=== PATIENT | female | born 1945 | race Caucasian/White ===

== ENCOUNTER → 2018-03-10 13:09 | Outpatient (CLI) | payer MEDICARE, MEDICAID, SELFPAY ==
--- NOTE | 2018-03-10 13:24 | XR_ITS ---
XR chest 2V HISTORY: ITS.REASON: CHEST PAIN ORDERING PHYSICIAN: Harper Sands PATIENT AGE: 73 years COMPARISON: 06/14/2009 FINDINGS: The cardiomediastinal silhouette and pulmonary vascularity are within normal limits. The lungs are clear without infiltrates, suspicious nodules, or pleural effusions. No acute bony abnormalities. IMPRESSION: Negative chest, no acute finding
--- NOTE | 2018-03-10 13:24 | XR_ITS ---
XR shoulder LT min 2V HISTORY: ITS.REASON: SHOULDER PAIN ORDERING PHYSICIAN: Harper Sands PATIENT AGE: 73 years Comparison: None FINDINGS: No fracture or dislocation. No lytic or blastic change. There is normal mineralization. There are mild osteoarthritic changes of the acromioclavicular joint with some mild hypertrophy along the undersurface of the acromion. No significant subacromial stenosis. The glenohumeral joint has an unremarkable appearance. There is some minimal subcortical cystic change of the greater tuberosity. This may be seen with rotator cuff disease. IMPRESSION: 1. Mild acromioclavicular arthropathy. 2. Mild subcortical cystic change of the greater tuberosity which may be seen with rotator cuff disease
== END ==
PROVIDERS: PCP Family Medicine; Visit Provider Nurse Practitioner Family
DX: R07.9 Chest pain, unspecified (principal); M25.512 Pain in left shoulder
CPT/HCPCS: 71046; 73030; 93005

== ENCOUNTER 2018-04-07 10:30 | Outpatient (RCR) | payer MEDICARE, MEDICAID, SELFPAY ==
--- NOTE | 2018-04-05 14:42 | HMH.PTOPEV ---
PT Outpatient Evaluation Rehab PT Outpatient Evaluation Start: 04/05/18 14:25 Freq: Status: Active Protocol: Document 04/05/18 14:25 CAROLINEDEEPTHI (Rec: 04/05/18 14:41 ADELITA [id number]) Electronically Signed By Kolton Lieberman, PT 04/05/18 14:25 Outpatient Therapy Subjective History Subjective History Patient is a 73 year old female presenting to outpatient PT with reports of chronic L shoulder pain of insidous onset starting approx 1 year ago. Most recent diagnostics indicate L ACJ arthropathy and signs of L rotator cuff disease per report. Main complaint is pain with reaching behind back . Comorbidities include Chief Complaint Pain Stiff Gives out/Unstable Symptom Type Ache Sharp Symptoms Relieved By Heat OTC Meds Symptoms Aggravated By Physical Activity Lifting Prior Functional Limitations None Current Functional Limitations Reaching Lifting Housework Dressing Sleeping Symptom Description Intermittent Level of pain today (0-10) 0 Pain scale - at its best (0-10) 0 Pain scale - at its worst (0-10) 5 Shoulder/Elbow Eval Shoulder Objective Measurements Palpation Tenderness tenderness shoulder exam standard left tenderness over the bicipital tendon left shoulder exam standard tenderness over the SA bursa shoulder left exam standard Shoulder Palpation Findings Tenderness Shoulder Palpation Overall Comment posterior cuff Posture Shoulder Posture Sitting Position (L) Forward (R) Forward Shoulder Posture Standing Position (L) Forward (R) Forward Flexibilty Deficits Pectoralis Minor Muscle Length (R) Moderate Tightness (L) Moderate Tightness Upper Trapezius Muscle Length (R) Moderate Tightness (L) Moderate Tightness Shoulder ROM Bilateral Shoulder Abduction Active Range of 138 Motion (degrees) Shoulder Flexion Active Range of Motion 144 (degrees) Query Text: Shoulder External Rotation Active Range WNL of Motion (degrees) Shoulder Internal Rotation
== END 2018-04-07 10:35 | disposition home or self-care (01) ==
LOC: PT 10:30
PROVIDERS: Visit Provider Family Medicine
DX: M25.512 Pain in left shoulder (principal)
CPT/HCPCS: 97010; 97014; 97033; 97035; 97110; 97163; G0283

== ENCOUNTER → 2018-05-31 13:40 | Outpatient (POV) | payer MEDICARE, MEDICAID, SELFPAY | PROVIDERS: Visit Provider Dermatology | DX: Z00.00 Encounter for general adult medical examination without abnormal findings (principal) ==

== ENCOUNTER → 2019-05-22 09:41 | Outpatient (CLI) | payer MEDICARE, MEDICAID, SELFPAY ==
--- NOTE | 2019-05-22 09:44 | MM_ITS ---
PROCEDURE: MM DIG SCREENING MAMM BI W/CAD BILATERAL DIGITAL BREAST TOMOSYNTHESIS Patient Age:74Y CLINICAL INDICATION: SCREENINGNo hormones. No new complaints. History of melanoma arm 3 years ago Family history noncontributory COMPARISON: BC SCREENING MAMMOGRAM DIGITAL from 06/01/2008 BC SCREENING MAMMOGRAM DIGITAL from 07/04/2009 BC SCREENING MAMMOGRAM DIGITAL from 07/18/2010 DMSB DIG MAMM-SCREEN JOANN from 03/02/2014 DMDXUAVR DIG MAMM-DX UNI ADD VIEWS-RT from 05/02/2014 DMDXUWAR DIG MAMM-DX UNI RT W ADD VIEW from 12/28/2014 TECHNIQUE: Standard CC and MLO images were obtained. R2 CAD reviewed. MM DIG SCREENING MAMM BI W/CAD BILATERAL DIGITAL BREAST TOMOSYNTHESIS FINDINGS: Moderate residual fibroglandular elements most evident at the retroareolar region anterior breast bilaterally. No new dominant or suspicious mass, no suspicious calcifications.. Overall architecture stable when compared to multiple previous studies Right breast No new areas of significant concern Overlapping shadows account area of minor focal density retroareolar region on MLO view. This dissipates on the tomosynthesis and on CC views appear stable. Similar appearance also noted on studies dating back to 2014. No new findings of concern Left breast: No new areas of concern follow-up in 1 year IMPRESSION: Stable bilateral mammogram No significant change . Bilateral follow-up 1 year recommended BI-RAD Category: 2 Benign Finding(s) FOLLOW-UP: 1YR 1 Year Follow-up (A letter has been sent to the patient regarding results of the study.) Dictated by: Rohit Chowdhury MD 05/29/2019 11:22 Electronically signed by Rohit Chowdhury MD in [place] 05/29/2019 11:23
== END ==
PROVIDERS: PCP Family Medicine; Visit Provider Family Medicine
DX: Z12.31 Encounter for screening mammogram for malignant neoplasm of breast (principal)
CPT/HCPCS: 77063; 77067

== ENCOUNTER 2020-03-12 13:25 | Emergency (ER) | payer MEDICARE, MEDICAID, SELFPAY ==
[2020-03-12 13:50] VITALS: BP 150/61; PULSE 75; RESP 14; TEMP 36.8; O2SAT 97; BMI 25.7
--- NOTE | 2020-03-12 14:14 | HMH.EDUTC ---
[facility] [place] Disposition Clinical Impression: Sinusitis Qualifiers: Sinusitis location: unspecified location Chronicity: acute Recurrence: non-recurrent Qualified Code(s): J01.90 - Acute sinusitis, unspecified Disposition: Home, Self-Care Condition on Discharge: Good Instructions: Sinusitis, DI for Sinusitis, COVID-19: Testing and Tracing, Preventing the Spread of Coronavirus Discharge Instructions Additional Instructions: Drink plenty of fluids. Take tylenol or ibuprofen for pain or fever. Take the medications as directed. Follow up with your regular doctor. GO TO THE ER FOR ANY WORSENING SYMPTOMS Prescriptions: predniSONE [Deltasone 10mg tablet] 10 mg PO BID 5 Days #10 tab Transmission Status: Received by [facility] [employer] # Azithromycin [Z-Chan 250mg Tab*] 250 mg PO UD DOSE PK #6 tab Transmission Status: Received by [employer] # Referrals: Denis Chahal MD [Primary Care Provider] - Time of Disposition: 14:16 Medical Decision Making - Medical Records Medical records reviewed: No: I reviewed the patient's medical records. - Armando Inquiry Pt receiving controlled substance: No Vital Signs: 03/12/20 13:50 03/12/20 14:20 Temperature 98.2 F 98.2 F Temperature Source Oral Pulse Rate 75 Pulse Rate [Right Brachial] 75 Respiratory Rate 14 14 Blood Pressure 150/61 H Blood Pressure [Right Arm] 150/61 H Blood Pressure Mean [Right Arm] 90 Blood Pressure Source [Right Arm] Automatic Cuff Blood Pressure Position [Right Arm] Sitting 02 Sat by Pulse Oximetry 97 Oxygen Delivery Method Room Air Orders (Tests/Meds): ORDERS Category Date Time Status Covid-19 Nasal PCR Sendout P&C Routine Lab 03/12/20 13:50 Received [facility] [place] HPI - General Stated complaint: COVID TEST Time Seen by Provider: 03/12/20 14:14 Mode of Arrival: Ambulatory Source of Information: Patient Limitations: No Limitations Description of Symptoms (Recalled from Triage Doc. by RN): PATIENT REQUESTING COVID TEST. DENIES EXPOSURE. C/O SINUS CONGESTION HEENT Symptoms (Recalled from RN notes): No Resp Symptoms (Recalled from RN notes): No Skin Symptoms (Recalled from RN notes): No MS Symptoms (Recalled from RN notes): No Functional Status (Recalled from RN notes): WNL - History of Present Illness Provider Complaint: She states that for the past 1 week or so she has had sinus congestion and sinus drainage. She denies any known exposure to covid. - Related Data Home Medications Medication Instructions Recorded Confirmed Atorvastatin Calcium [Atorvastatin 10 mg PO HS 11/18/18 12/27/18 10mg Tab] Losartan/Hydrochlorothiazide 50 mg PO DAILY 11/18/18 12/27/18 [Losartan-Hctz 50-12.5 mg Tab] Sertraline HCl [Zoloft 100mg 100 mg PO BID 11/18/18 12/27/18 tablet] Aspirin [Aspirin 81mg chewable 81 mg PO DAILY 12/21/18 12/27/18 tab] Previous Rx's Medication Instructions Recorded Azithromycin [Z-Chan 250mg Tab*] 250 mg PO UD DOSE PK #6 tab 03/12/20 predniSONE [Deltasone 10mg tablet] 10 mg PO BID 5 Days #10 tab 03/12/20 Allergies Allergy/AdvReac Type Severity Reaction Status Date / Time No Known Drug Allergies Allergy Unknown Verified 02/28/19 16:38 - Worker's Comp Is this a Worker's Comp case?: No [facility] History - Hepatitis A Screen Drug use history?: No High risk sexual behaviors?: No History of sexually transmitted infection?: No Currently employed?: No Childcare worker?: No Do you have indoor plumbing?: Yes Do you have electricity?: Yes Attestation statement:: This patient has been screened for Hepatitis A risk factors. I have reviewed the patient's past medical history: Yes Medical History: Reports:: Cancer (left arm melanoma), Hyperlipidemia, Hypertension Denies:: Diabetes Mellitus Type 1, Diabetes Mellitus Type 2, Internal Pacemaker, MRSA, Seizures Other Surgeries: No: Pacemaker Amputation: No Fractures: Yes (rt ankle) - Social History Smoking Status: F
[2020-03-12 14:20] VITALS: BP 150/61; PULSE 75; RESP 14; TEMP 36.8; O2SAT 97
[2020-03-13 10:59] LABS: Covid-19 Nasal PCR Sendout P&C Negative
== END 2020-03-12 14:21 | disposition home or self-care (01) ==
PROVIDERS: Emergency Provider Nurse Practitioner Family; PCP Family Medicine
DX: Z20.822 Contact with and (suspected) exposure to COVID-19 (principal); J01.90 Acute sinusitis, unspecified; I10 Essential (primary) hypertension; E78.5 Hyperlipidemia, unspecified; Z87.891 Personal history of nicotine dependence; Z79.899 Other long term (current) drug therapy
CPT/HCPCS: G0463; 99202; U0004

== ENCOUNTER → 2020-06-14 09:17 | Outpatient (CLI) | payer MEDICARE, MEDICAID, SELFPAY ==
--- NOTE | 2020-06-14 09:22 | MM_ITS ---
PROCEDURE INFORMATION: Exam: MG Screening 3D Mammography Exam date and time: 06/14/2020 9:22 AM Age: 75 years old Clinical indication: Encounter for screening mammogram for malignant neoplasm of breast TECHNIQUE: Imaging protocol: Screening tomosynthesis and 2D mammography including computer-aided detection (CAD) when performed. COMPARISON: 1. MG MM DIG SCREENING MAMM BI W/CAD 05/22/2019 9:58 AM 2. MG DMDXUWAR DIG MAMM-DX UNI RT W ADD VIEW 12/28/2014 1:48 PM FINDINGS: MAMMOGRAPHY: Breast composition: The breast tissue is composed of scattered areas of fibroglandular density. Mass: None. Architectural distortion: None. Calcifications: No suspicious calcifications. Asymmetric density: None. Skin thickening: None. Axillary adenopathy: None. IMPRESSION: No mammographic evidence of malignancy. Annual screening is recommended unless otherwise clinically indicated. ASSESSMENT: BI-RADS Category 1: Negative
== END ==
PROVIDERS: PCP Family Medicine; Visit Provider Family Medicine
DX: Z12.31 Encounter for screening mammogram for malignant neoplasm of breast (principal)
CPT/HCPCS: 77063; 77067

== ENCOUNTER → 2020-11-11 10:51 | Outpatient (CLI) | payer MEDICARE, MEDICAID, SELFPAY | PROVIDERS: PCP Family Medicine; Visit Provider Nurse Practitioner | DX: Z20.822 Contact with and (suspected) exposure to COVID-19 (principal); U07.1 COVID-19 | CPT/HCPCS: C9803; U0003; U0005 ==

== ENCOUNTER → 2021-02-27 11:15 | Outpatient (CLI) | payer MEDICARE, MEDICAID, SELFPAY ==
[2021-02-27 11:36] LABS: Basophils # 0.2 K/mm3 (0-0.2); Basophils % 2.1 % (0.1-2.0); Eosinophils % 0.3 % (0.1-12.0); Hematocrit 41.7 % (37.0-47.0); Hemoglobin 13.9 g/dL (12.2-16.2); Lymphocytes # 1.9 K/mm3 (0.7-4.5); Lymphocytes % 24.9 % (10-50); Mean Corpuscular HGB Conc 33.3 g/dL (31.8-35.4); Mean Corpuscular Hemoglobin 29.3 pg (27.0-31.2); Mean Platelet Volume 8.1 fl (7.4-10.4); Monocytes # 0.5 K/mm3 (0.1-1.0); Monocytes % 6.6 % (1.7-9.3); Neutrophils # 4.9 K/mm3 (1.8-7.8); Neutrophils % 66.2 % (37.0-80.0); Platelet Count 476 K/mm3 (142-424); Red Blood Count 4.74 M/mm3 (4.20-5.40); Red Cell Distribution Width 13.6 % (11.5-17.5); White Blood Count 7.5 K/mm3 (4.8-10.8)
[2021-02-27 12:42] LABS: Alanine Aminotransferase 26 U/L (12-78); Albumin Level 4.5 g/dl (3.5-5.0); Albumin/Globulin Ratio 1.7 (1.1-1.8); Alkaline Phosphatase 127 U/L (38-126); Anion Gap 12.4 mEq/L (5-15); Aspartate Amino Transferase 33 U/L (14-36); Bilirubin,Total 0.7 mg/dl (0.2-1.3); Blood Urea Nitrogen 15 mg/dl (7-17); Calcium 9.5 mg/dl (8.4-10.2); Carbon Dioxide 29 mmol/L (22.0-30.0); Chloride 97 mmol/L (98-107); Estimated Glomerular Filt Rate 61 ml/min (>60); GFR (African American) 74 ML/MIN (>60); Globulin 2.7 g/dL (1.3-3.2); Glucose 94 mg/dl (74-100); Potassium 4.4 mmoL/L (3.5-5.1); Sodium 134 mmol/L (136-145); Total Protein,Serum 7.2 g/dl (6.3-8.2)
== END ==
PROVIDERS: Visit Provider Nurse Practitioner Family
DX: R10.31 Right lower quadrant pain (principal); R19.7 Diarrhea, unspecified
CPT/HCPCS: 36415; 80053; 85025

== ENCOUNTER → 2021-02-28 09:17 | Outpatient (CLI) | payer MEDICARE, MEDICAID, SELFPAY ==
[2021-02-28 09:19] LABS: Adenovirus F 40/41, stool Not Detected (NotDetected); Astrovirus Not Detected (NotDetected); Campylobacter Not Detected (NotDetected); Clostridium Difficile A/B, PCR Not Detected (NotDetected); Cryptosporidium Not Detected (NotDetected); Cyclospora Cayetanesis Not Detected (NotDetected); Entamoeba histolytica Not Detected (NotDetected); Enteroaggregative E coli Not Detected (NotDetected); Enteropathogenic E coli Not Detected (NotDetected); Enterotoxigenic E coli Not Detected (NotDetected); Giardia lamblia Not Detected (NotDetected); Norovirus Not Detected (NotDetected); Plesimonas Shigalloides, PCR Not Detected (NotDetected); Rotavirus A Not Detected (NotDetected); Salmonella, PCR Not Detected (NotDetected); Sapovirus Not Detected (NotDetected); Shiga-like toxin E coli Not Detected (NotDetected); Shigella Enterovasive E coli Not Detected (NotDetected); Vibrio Cholerae Not Detected (NotDetected); Vibrio, PCR Not Detected (NotDetected); Yersinia Entercolitica, PCR Not Detected (NotDetected)
== END ==
PROVIDERS: PCP Family Medicine; Visit Provider Nurse Practitioner Family
DX: R19.7 Diarrhea, unspecified (principal)
CPT/HCPCS: 87506

== ENCOUNTER 2021-02-28 17:38 | Emergency (ER) | payer MEDICARE, MEDICAID, SELFPAY ==
[2021-02-28 19:06] LABS: Apearance,Urine Cloudy (Clear); Bilirubin,Urine Negative (Negative); Blood, Urine 3+ (Negative); Color,Urine Yellow (Yellow); Glucose,Urine (UA) Negative (Negative); Ketones,Urine Negative (Negative); PH,Urine 5.5 (5.0-8.5); Protein,Urine 1+ (Negative); Specific Gravity, Urine 1.015 (1.005-1.030); UTC Leukocyte Esterase,Urine 2+ (Negative); UTC Nitrate,Urine Negative (Negative); Urobilinogen,Urine 0.2 EU/dl (0.2)
[2021-02-28 19:18] VITALS: BP 176/56; PULSE 65; RESP 16; TEMP 36.9; O2SAT 98; BMI 25.7
--- NOTE | 2021-02-28 19:39 | HMH.EDUTC ---
[facility] [place] Impression: UTI (urinary tract infection) Qualifiers: Urinary tract infection type: site unspecified Hematuria presence: with hematuria Qualified Code(s): N39.0 - Urinary tract infection, site not specified; R31.9 - Hematuria, unspecified Disposition: Home, Self-Care Condition on Discharge: Good Instructions: Urinary Tract Infection, DI for Urinary Tract Infection (UTI), Phenazopyridine Additional Instructions: Drink plenty of fluids. Take tylenol for pain or fever. Take the medications as directed. Follow up with your regular doctor. GO TO THE ER FOR ANY WORSENING SYMPTOMS The pyridium will make your urine turn orange, this is an expected side effect. It will stain your clothes if it comes into contact with them. Prescriptions: Ondansetron [Zofran 4mg ODT] 4 mg PO Q8HP PRN #20 tab PRN Reason: Nausea Transmission Status: Pending to [facility] Ciprofloxacin HCl [Cipro 500mg Tab] 500 mg PO BID 5 Days #10 tab Transmission Status: Pending to [facility] Phenazopyridine HCl [Pyridium 200mg Tablet] 200 pow PO TID #6 tab Transmission Status: Pending to [facility] Referrals: Nato Mueller MD [Primary Care Provider] - Time of Disposition: 20:10 Medical Decision Making - Medical Records Medical records reviewed: No: I reviewed the patient's medical records. - Armando Inquiry Pt receiving controlled substance: No Vital Signs: 02/28/21 19:18 Temperature 98.4 F Temperature Source Oral Pulse Rate [Left] 65 Respiratory Rate 16 Blood Pressure [Right Arm] 176/56 H Blood Pressure Mean [Right Arm] 96 02 Sat by Pulse Oximetry 98 - Lab Data Lab Results 02/28/21 19:04: Urine Color Yellow, Urine Appearance Cloudy, Urine pH 5.5, Ur Specific Mcgill 1.015, Urine Protein 1+, Urine Glucose (UA) Negative, Urine Ketones Negative, Urine Blood 3+, Urine Nitrate Negative, Urine Bilirubin Negative, Urine Urobilinogen 0.2, Ur Leukocyte Esterase 2+ A Orders (Tests/Meds): ORDERS Category Date Time Status Urine Culture Stat Micro 02/28/21 18:59 [place] [facility] [place] - General Stated complaint: blood in urine Time Seen by Provider: 02/28/21 19:39 Mode of Arrival: Ambulatory Source of Information: Patient Limitations: No Limitations Description of Symptoms (Recalled from Triage Doc. by RN): pt c/o urinary pressure since yesterday. HEENT Symptoms (Recalled from RN notes): No Resp Symptoms (Recalled from RN notes): No Skin Symptoms (Recalled from RN notes): No MS Symptoms (Recalled from RN notes): No Functional Status (Recalled from RN notes): wnl - History of Present Illness Provider Complaint: She states that she has been having burning with urination and low back pain for the past 2 days. She has also had some mild low back pain. She denies any fever but she has had chills. - Related Data Home Medications Medication Instructions Recorded Confirmed Atorvastatin Calcium [Atorvastatin 10 mg PO HS 11/18/18 12/27/18 10mg Tab] Losartan/Hydrochlorothiazide 50 mg PO DAILY 11/18/18 12/27/18 [Losartan-Hctz 50-12.5 mg Tab] Sertraline HCl [Zoloft 100mg 100 mg PO BID 11/18/18 12/27/18 tablet] Aspirin [Aspirin 81mg chewable 81 mg PO DAILY 12/21/18 12/27/18 tab] Previous Rx's Medication Instructions Recorded Azithromycin [Z-Chan 250mg Tab*] 250 mg PO UD DOSE PK #6 tab 03/12/20 predniSONE [Deltasone 10mg tablet] 10 mg PO BID 5 Days #10 tab 03/12/20 Ciprofloxacin HCl [Cipro 500mg 500 mg PO BID 5 Days #10 tab 02/28/21 Tab] Ondansetron [Zofran 4mg ODT] 4 mg PO Q8HP PRN #20 tab 02/28/21 Phenazopyridine HCl [Pyridium 200 pow PO TID #6 tab 02/28/21 200mg Tablet] Allergies Allergy/AdvReac Type Severity Reaction Status Date / Time No Known Drug Allergies Allergy Unknown Verified 02/28/19 16:38 - Worker's Comp Is this a Worker's Comp case?: No [facility] History - Hepatitis A Screen Drug use history?:
[2021-02-28 20:31] VITALS: BP 176/56; PULSE 65; RESP 16; TEMP 36.9
== END 2021-02-28 20:32 | disposition home or self-care (01) ==
PROVIDERS: Emergency Provider Nurse Practitioner Family; PCP Family Medicine
DX: N30.01 Acute cystitis with hematuria (principal); I10 Essential (primary) hypertension; E78.5 Hyperlipidemia, unspecified; Z87.891 Personal history of nicotine dependence; Z79.899 Other long term (current) drug therapy; R10.0 Acute abdomen
CPT/HCPCS: G0463; 81003; 87086; 87088; 87186; 87506; 99202

== ENCOUNTER → 2021-04-11 09:04 | Outpatient (CLI) | payer MEDICARE, MEDICAID, SELFPAY ==
--- NOTE | 2021-04-11 09:08 | XR_ITS ---
FINAL REPORT TECHNIQUE: Bone densitometry calculations of the lumbar spine and left hip were obtained. CLINICAL HISTORY: . screening FINDINGS: Using L1-4, the bone mineral density of the spine is 1.101 g/cm2, corresponding to T-score of 0.5. Using the left hip, the bone mineral density of the femoral neck is 0.669 g/cm2, corresponding to a T-score of -1.6. Using the right hip, the bone mineral density of the femoral neck is 0.641 g/cm2, corresponding to a T-score of -1.9. IMPRESSION: Diminished bone mineral density of both hips consistent with osteopenia. Based on FRAX data: There is 18% risk for major osteoporotic fracture of the left hip and 19% risk for major osteoporotic fracture of the right hip. Normal bone mineral density of the lumbar spine. Reviewed, Interpreted and Dictated by Vasu Matamoros MD Transcribed by Juana Petty Authenticated by Vasu Matamoros MD on 04/11/2021 04:57:44 PM [facility]
== END ==
PROVIDERS: PCP Family Medicine; Visit Provider Family Medicine
DX: Z13.820 Encounter for screening for osteoporosis (principal); Z78.0 Asymptomatic menopausal state
CPT/HCPCS: 77080

== ENCOUNTER → 2021-04-23 09:41 | Outpatient (CLI) | payer MEDICARE, MEDICAID, SELFPAY ==
--- NOTE | 2021-04-23 09:45 | XR_ITS ---
FINAL REPORT CLINICAL HISTORY: LOW BACK PAIN, PINCH IN LOWER BACK, C/O LEFT LEG GOING NUMB FINDINGS: LUMBAR SPINE Five views of the lumbar spine were obtained. There is no acute fracture or subluxation. Moderate to severe degenerative change with osteophytes are present. There is vacuum phenomenon at L5-S1. Note is made of vascular calcification. IMPRESSION: Moderate to severe degenerative changes as above. Reviewed, Interpreted and Dictated by Marcus Vieira III, MD Transcribed by Harper Egan Authenticated by Marcus Vieira III, MD on 04/23/2021 11:29:01 AM [facility]
== END ==
PROVIDERS: PCP Family Medicine; Visit Provider Family Medicine
DX: M81.0 Age-related osteoporosis without current pathological fracture (principal)
CPT/HCPCS: 72110

== ENCOUNTER 2021-05-04 20:21 | Emergency (ER) | payer MEDICARE, MEDICAID, SELFPAY ==
[2021-05-04 20:22] VITALS: BP 166/79; PULSE 68; RESP 18; TEMP 36.7; O2SAT 98; BMI 26.6
[2021-05-04 20:31] VITALS: BMI 26.6
--- NOTE | 2021-05-04 20:31 | XR_ITS ---
PROCEDURE INFORMATION: Exam: XR Chest Exam date and time: 05/04/2021 8:35 PM Age: 76 years old Clinical indication: Other: Left jaw and left upper chest pain , left arm pain; Additional info: Left jaw, left arm and left upper chest pain TECHNIQUE: Imaging protocol: XR of the chest. Views: 2 views. COMPARISON: CR XR CHEST PORTABLE 02/28/2019 5:00 PM FINDINGS: Lungs: Unremarkable. No consolidation. Pleural spaces: Unremarkable. No pleural effusion. No pneumothorax. Heart/Mediastinum: Unremarkable. No cardiomegaly. Bones/joints: Degenerative changes of the shoulders. IMPRESSION: No acute findings.
--- NOTE | 2021-05-04 20:31 | ECG_ITS ---
APPROVED REPORT Exam: Resting ECG HR:66 bpm ECG Measurements Heart Rate 66 AXES IL 157 P 66 QRSd 93 QRS 52 QT 390 T 54 QTc 404 Conclusion SINUS RHYTHM LOW QRS VOLTAGE IN PRECORDIAL LEADS [QRS DEFLECTION < 1.0 mV IN CHEST LEADS] PATTERN CONSISTENT WITH PULMONARY DISEASE ABNORMAL ECG UNCONFIRMED REPORT Electronically signed by : Juno Balderrama MD 05/07/2021 18:14:29
[2021-05-04 20:48] LABS: Basophils # 0.2 K/mm3 (0-0.2); Basophils % 1.8 % (0.1-2.0); Eosinophils % 0.5 % (0.1-12.0); Hematocrit 38.2 % (37.0-47.0); Hemoglobin 12.3 g/dL (12.2-16.2); Lymphocytes # 2.6 K/mm3 (0.7-4.5); Lymphocytes % 31.4 % (10-50); Mean Corpuscular HGB Conc 32.3 g/dL (31.8-35.4); Mean Corpuscular Hemoglobin 28.7 pg (27.0-31.2); Mean Corpuscular Volume 88.8 fl (81-99); Mean Platelet Volume 8.2 fl (7.4-10.4); Monocytes # 0.6 K/mm3 (0.1-1.0); Monocytes % 7.4 % (1.7-9.3); Neutrophils # 4.9 K/mm3 (1.8-7.8); Platelet Count 434 K/mm3 (142-424); Red Cell Distribution Width 13.2 % (11.5-17.5); White Blood Count 8.2 K/mm3 (4.8-10.8)
[2021-05-04 20:57] LABS: Anion Gap 8.8 mEq/L (5-15); Blood Urea Nitrogen 11 mg/dl (7-17); Calcium 8.9 mg/dl (8.4-10.2); Carbon Dioxide 31 mmol/L (22.0-30.0); Chloride 98 mmol/L (98-107); Creatinine Clearance Estimated 53 mL/min (50-200); Estimated Glomerular Filt Rate 61 ml/min (>60); GFR (African American) 74 ML/MIN (>60); Glucose 95 mg/dl (74-100); Potassium 3.8 mmoL/L (3.5-5.1); Sodium 134 mmol/L (136-145)
[2021-05-04 21:00] VITALS: BP 163/72; PULSE 70
[2021-05-04 21:02] LABS: C-Reactive Protein 1.6 mg/L (0-4)
[2021-05-04 21:11] LABS: Troponin I < 0.01 ng/ml (0.00-0.034)
[2021-05-04 21:15] LABS: Erythrocyte Sedimentation Rate 22 mm/hr (0-30)
[2021-05-04 21:24] LABS: Free T4 (Free Thyroxine) 1.08 ng/dl (0.78-2.19)
[2021-05-04 21:29] LABS: Thyroid Stimulating Hormone 5.61 uIU/mL (0.465-4.68)
[2021-05-04 21:30] VITALS: BP 157/70; PULSE 58; O2SAT 97
--- NOTE | 2021-05-04 21:58 | HMH.EDGENADL ---
ED Disposition Clinical Impression: Atypical chest pain Disposition: Home, Self-Care Condition on Discharge: Good Instructions: DI for Atypical Chest Pain Additional Instructions: seecard in am for close follow up Referrals: Nato Mueller MD [Primary Care Provider] - - Critical Care Critical Care Time: No Attestation: On 05/04/21, the high probability of a clinically significant, sudden or life threatening deterioration of the following system(s) required my full and direct attention, intervention and personal management. The time I documented below is in addition to time spent performing reported procedures but includes the following listed in this critical care notation. Medical Decision Making - Medical Records Medical records reviewed: Yes: I reviewed the patient's medical records. - Armando Inquiry Pt receiving controlled substance: No Vital Signs: 05/04/21 20:22 05/04/21 21:00 05/04/21 21:30 Temperature 98.1 F Temperature Source Oral Pulse Rate 70 58 L Pulse Rate [Right] 68 Respiratory Rate 18 Blood Pressure 163/72 H 157/70 H Blood Pressure [Right Arm] 166/79 H Blood Pressure Mean 108 Blood Pressure Mean [Right Arm] 108 02 Sat by Pulse Oximetry 98 97 05/04/21 22:00 05/04/21 22:15 Temperature Temperature Source Pulse Rate 58 L 61 Pulse Rate [Right] Respiratory Rate Blood Pressure 161/74 H Blood Pressure [Right Arm] Blood Pressure Mean 109 Blood Pressure Mean [Right Arm] 02 Sat by Pulse Oximetry 98 99 - Lab Data Lab results reviewed: Yes: I reviewed the patient's lab results. Lab Results 05/04/21 20:45: WBC 8.2, RBC 4.30, Hgb 12.3, Hct 38.2, MCV 88.8, MCH 28.7, MCHC 32.3, RDW 13.2, Plt Count 434 H, MPV 8.2, Neut % (Auto) 59.0, Lymph % (Auto) 31.4, Jun[place] % (Auto) 7.4, Eos % (Auto) 0.5, Baso % (Auto) 1.8, Neut # (Auto) 4.9, Lymph # (Auto) 2.6, Jun[place] # (Auto) 0.6, Eos # (Auto) 0.0, Baso # (Auto) 0.2, ESR 22 05/04/21 20:45: Sodium 134 L, Potassium 3.8, Chloride 98, Carbon Dioxide 31 H, Anion Gap 8.8, BUN 11, Creatinine 0.90, Estimated Creat Clear 53, Estimated GFR 61, Est GFR ( Amer) 74, Glucose 95, Calcium 8.9, Troponin I < 0.01, C-Reactive Protein 1.6 05/04/21 20:45: Free T4 1.08 05/04/21 20:45: TSH 5.61 H 05/04/21 23:21: Troponin I < 0.01 Result diagrams: 05/04/21 20:45 05/04/21 20:45 Orders (Tests/Meds): ED MEDICATIONS Generic Name Dose Route Start Last Admin Trade Name Freq PRN Reason Stop Dose Admin Sodium Chloride 1,000 mls @ 999 mls/hr 05/04/21 20:45 05/04/21 20:46 Sod Chlor 0.9% 1000ml Bag IV 05/04/21 21:45 999 mls/hr .Q1H1M PATI Administration Discontinued Medications Generic Name Dose Route Start Last Admin Trade Name Freq PRN Reason Stop Dose Admin Aspirin 324 mg 05/04/21 20:34 05/04/21 20:37 Aspirin 81mg Chewable Tablet PO 05/04/21 20:35 324 mg ONCE ONE Administration ORDERS Category Date Time Status Troponin I Q3H Lab 05/05/21 02:45 Ordered - Radiology Data #1 Image(s): Chest Image Reviewed: Yes I have reviewed radiologist's interpretation Preliminary Findings: Normal/NAD - ECG Data Tracing #1 Normal Sinus Rhythm: Yes Ischemic changes: non-specific ST-T wave changes - INGE Score for Non-Stemi Age of Patient: 70-79 years old Heart Rate: 50-69 bpm Systolic Blood Pressure: 160-199 mmHg Serum Creatinine: 0.80-1.19 mg/dl CHF Killip Class: I-No CHF Other Risk Factors: None Non-Stemi Risk Score: 95 Medical Decision Narrative: atypical pain which maybe angina - resolved now with stable exam and labs and will refer to card in am General Adult HPI - General Chief complaint: PAIN Stated complaint: Pain in left jaw and left arm radiating to back Time Seen by Provider: 05/04/21 21:58 Mode of Arrival: Ambulatory Source of Information: Patient, Medical Record Limitations: No Limitations Description of Symptoms (Recalled from ER Triage Doc. by RN): pt c/o jaw pain radi
[2021-05-04 22:00] VITALS: BP 161/74; PULSE 58; O2SAT 98
[2021-05-04 22:15] VITALS: PULSE 61; O2SAT 99
[2021-05-05 00:06] LABS: Troponin I < 0.01 ng/ml (0.00-0.034)
[2021-05-05 00:25] VITALS: BP 137/60; PULSE 64; RESP 18; TEMP 36.7; O2SAT 98
== END 2021-05-05 00:35 | disposition home or self-care (01) ==
PROVIDERS: Emergency Provider Emergency Medicine; PCP Family Medicine
DX: R07.89 Other chest pain (principal); R68.84 Jaw pain; M79.602 Pain in left arm; M25.512 Pain in left shoulder; I10 Essential (primary) hypertension; E78.5 Hyperlipidemia, unspecified; M54.9 Dorsalgia, unspecified; Z79.82 Long term (current) use of aspirin; Z79.899 Other long term (current) drug therapy; Z85.820 Personal history of malignant melanoma of skin; Z87.891 Personal history of nicotine dependence; Z82.49 Family history of ischemic heart disease and other diseases of the circulatory system; Z83.3 Family history of diabetes mellitus; Z83.438 Family history of other disorder of lipoprotein metabolism and other lipidemia; Z80.9 Family history of malignant neoplasm, unspecified
CPT/HCPCS: 71046; 80048; 84439; 84443; 84484; 85025; 85651; 86140; 93005; 96360; 96365; 99285

== ENCOUNTER → 2021-05-15 11:43 | Outpatient (CLI) | payer MEDICARE, MEDICAID, SELFPAY ==
--- NOTE | 2021-05-15 | CA_ITS ---
APPROVED REPORT Exam: Pharmacologic Technologist: Lisa Crouch, Ht: 5 ft 4 in Wt: 155 lbs BSA: 1.76 m2 HR: 61 bpm BP: 136/49 mmHg Rhythm: NSR, low voltage QRS Indications: CP Medical History Medical History: HTN, Hyperlipidemia Medications: Omeprazole,,,,, Aspirin,,,,, Atorvastatin,,,,, Escitalopram,,,,, BisOPROLOL,,,,, Losartan-HCT,,,,, Cardiac Risk Factors: HTN, Hyperlipidemia Stress Test Details Test: LEXISCAN HR Resting HR: 57 bpm Max Heart Rate (APMHR): 144.615855 bpm Max HR Achieved: 83 bpm Target HR (85% APMHR): 122.864899 bpm % of APMHR: 57.64 Recovery HR: 73 bpm BP Resting BP: 136/49 mmHg Max BP: 139/59 mmHg Recovery BP: 103.0/46.0 mmHg ECG Resting ECG: NSR, low voltage QRS Clinical Exercise duration: 04:00 min Highest Stage Achieved: Stress ECG Conclusion During lexiscan pt experinced mild SOA, nausea, head discomfort. No CP. No arrhythmias noted. NS ST changes. Unremarkable lexiscan. Myoview images reported separately. Test Summary REST . . . . . . . Sitting REST 02:50 . . 57 . 136/ 49 . . Stage 1 01:00 . . 77 . . . . Stage 2 01:00 . . 80 . 139/ 59 . . Stage 3 01:00 . . 79 . 122/ 59 . . Stage 4 01:00 . . 76 . 131/ 61 . Stop exercise at 04:00 RECOVERY 01:00 . . 73 . . . . RECOVERY 02:00 . . 71 . . . . RECOVERY 03:00 . . 73 . 103/ 46 . . RECOVERY 04:00 . . 72 . 129/ 51 . . RECOVERY 04:16 . . 68 . 129/ 51 . . Electronically signed by : Nima Newman MD 05/16/2021 13:32:39
--- NOTE | 2021-05-15 11:43 | NM_ITS ---
APPROVED REPORT Exam: Nuclear Stress Test Indication: Angina, Palpitations, Fatigue, HTN, High cholesterol Patient Location: Outpatient Stress Tech: Patti Toledo [place] Tech:Terri Welch REHANA RT(R)(N) Ht: 5 ft 4 in Wt: 154 lbs Bra Size: D HR: 61 bpm BP: 136/49 mmHg BSA: 1.75 m2 BMI: 26.4 History: Angina, Palpitations, Fatigue, HTN, High cholesterol Procedure: Patient received a 0.4 mg of intravenous Lexiscan, resting heart rate 61 bpm, resting blood pressure 136/49 mmHg, with Lexiscan maximum heart rate achived was 83 bpm which is Less than 85 % of the maximum predicted heart rate and blood pressure was 139/59 mmHg. With Lexiscan, patient denied any complaint of chest pain. Electrocardiogram Resting electrocardiogram shows sinus rhythm, with Lexiscan there is less than 1.[address] segment depression noted from the baseline EKG. The EKG portion of the Lexiscan is nondiagnostic. Cardiac Stress and Resting SPECT Images: Cardiac Stress and Resting SPECT images were obtained using technetium 99m Myoview 31.7 mCi stress and 10.70 mCi at rest. Gated SPECT for analysis of segmental wall motion and calculation of the ejection fraction also done. Cardiac stress and rest SPECT may show uniform myocardial activity without segmental perfusion abnormality, computer derived ejection fraction is over 65% with no regional wall motion abnormality, right ventricle is normal size and contractility. Conclusion: 1. The EKG portion of the Lexiscan is nondiagnostic. 2. No scintigraphic evidence of reversible ischemia seen, computer derived ejection fraction is over 65% with no regional wall motion abnormality, right ventricle is normal size and contractility. 3. Normal Lexiscan Myoview study. Electronically signed by : Nima Newman MD 05/16/2021 13:34:37
--- NOTE | 2021-05-15 13:45 | CA_ITS ---
APPROVED REPORT EXAM: Comprehensive 2D, Doppler, and color-flow Echocardiogram Architectural Sales Consultant: Dominique Padilla, RCS, RVS Ht: 5 ft 4 in Wt: 155lbs BSA: 1.76 BP: 142/76 mmHg Indications: Hyperlipidemia, Hypertension/HDD, Ex-smoker, Family Hx-hd Echo Enhancing Agent Comments: Poor acoustic windows throughout. 2D Dimensions IVSd 0.87 cm LVEF (Visual) 73.30 % PWd 0.92 cm LA Volume 28.00 mL LVDd 4.51 cm LA Volume Index 15.90 mL/m2 (M/F) 16-34 LVDs 2.61 cm Aortic Root 2.74 cm Left Atrium 2.65 cm LVOT 1.93 cm (M/F) 1.5-2.5 M-Mode Dimensions LA Diam 2.79 cm (1.9-4.0) LVDd 4.41 cm (3.5-5.7) Ao Diam 2.77 cm (2.0-3.7) LVDs 2.33 cm (3.5-5.7) EF (Teich) 78.80% EPSs 0.50 cm FS 47.20% EDV (Teich) 88.20 mL TAPSE 1.94 (<1.7) ESV (Teich) 18.70 mL LV Diastology E Decel Time 257.00 (160-240 msec) E/A Ratio 0.77 MED E' 6.30 (< 7 cm/sec) MED A' 9.50 cm/s E'/MED E' Ratio 11.73 (>14) LAT E' 6.70 (<10 cm/sec) LAT A' 10.80 cm/s E/LAT E' Ratio 11.03 (>14) Aortic Valve LVOT Max 108.00 (70-110 cm/s) LVOT VTI 21.23 cm AoV Peak Uziel. 153.00 (50-130 cm/s) AO Peak GR. 9.30 mmHg AO Mean GR. 4.60 (<5 mmHg) AO VTI 32.70 (18-25 cm) KRISTA (VTI) 1.90 (2.5-4.5 cm2) Mitral Valve MV A Velocity 96.00 (40-130 cm/s) E/A Ratio 0.77 MV Decel. Time 257.00 (160-240 ms) Pulmonary Valve PV Peak Velocity 84.00 (50-150 cm/s) Tricuspid Valve TR P. Velocity 163.00 cm/s RAP Estimate 10.00 mmHg RVSP 20.60 mmHg Left Ventricle Left atrium is mildly enlarged, left ventricle is normal size, mild concentric left ventricular hypertrophy, estimated ejection fraction 55% with no regional wall motion abnormality, grade 1 diastolic dysfunction seen without tissue Doppler evidence of raise left atrial pressure. Right Ventricle Right atrium and right ventricle are normal size and contractility. Aortic Valve Aortic valve is minimally thickened and fibrosed, there is no aortic stenosis or aortic insufficiency. Mitral Valve Mitral valve grossly normal, there is trace mitral regurgitation. Tricuspid Valve Is very grossly normal, there is trace tricuspid regurgitation, tricuspid rotation jet velocity is inadequate for calculation of the right ventricular systolic pressure. Pulmonic Valve Pulmonic valve is poorly visualized. Great Vessels Aortic root is normal size. Inferior vena cava is poorly visualized. Pericardium No significant pericardial effusion noted. Conclusion 1. Mildly enlarged left atrium, normal left ventricular size, mild concentric left ventricular l hypertrophy, visually estimated ejection fraction 55% with no regional wall motion abnormality, grade 1 diastolic dysfunction seen without tissue Doppler evidence of raise left atrial pressure. 2. Trace mitral and tricuspid rotation. 3. No significant pericardial effusion noted. 4. Inferior vena cava is poorly visualized. Electronically signed by : Nima Newman MD 05/16/2021 15:11:33
--- NOTE | 2021-05-15 14:55 | HMH.ITSHM ---
Current Home Medications as stated by this patient Tiffany Zacarias or employee's representative. []OMEPRAZOLE ESCITALOPRAM BISOPROLOL LOSARTAN ATORVASTATIN ASA
== END ==
PROVIDERS: PCP Family Medicine; Visit Provider Nurse Practitioner Family
DX: I20.9 Angina pectoris, unspecified (principal); R07.89 Other chest pain
CPT/HCPCS: 78452; 93017; 93306; A9502; J2785

== ENCOUNTER → 2021-07-31 10:43 | Outpatient (CLI) | payer MEDICARE, MEDICAID, SELFPAY ==
--- NOTE | 2021-07-31 10:48 | MM_ITS ---
PROCEDURE INFORMATION: Exam: MG Bilateral Screening 3D Mammography Exam date and time: 07/31/2021 10:45 AM Age: 76 years old Clinical indication: Screening examination TECHNIQUE: Imaging protocol: Bilateral Screening tomosynthesis and 2D mammography including computer-aided detection (CAD) when performed. COMPARISON: 1. MG MM DIG SCREENING MAMM BI W/CAD 06/14/2020 9:22 AM 2. MG MM DIG SCREENING MAMM BI W/CAD 05/22/2019 9:58 AM FINDINGS: MAMMOGRAPHY: Breast composition: There are scattered areas of fibroglandular density. Mass: None. Architectural distortion: None. Calcifications: No suspicious calcifications. Asymmetric density: None. Skin thickening: None. Axillary adenopathy: None. IMPRESSION: No mammographic evidence of malignancy. Annual screening is recommended unless otherwise clinically indicated. ASSESSMENT: BI-RADS Category 1: Negative
== END ==
PROVIDERS: PCP Family Medicine; Visit Provider Family Medicine
DX: Z12.31 Encounter for screening mammogram for malignant neoplasm of breast (principal)
CPT/HCPCS: 77063; 77067

== ENCOUNTER 2022-04-19 18:48 | Emergency (ER) | payer MEDICARE, MEDICAID, SELFPAY ==
[2022-04-19 19:00] VITALS: BP 170/58; PULSE 74; RESP 21; TEMP 36.4; O2SAT 98; BMI 25.4
--- NOTE | 2022-04-19 19:12 | EXP.UTC ---
Discharge Plan Disposition Patient Disposition: Home, Self-Care Condition: Good Prescriptions Prescriptions: New cefdinir 300 mg capsule 300 mg PO BID Qty: 14 0RF No Action escitalopram oxalate 10 mg tablet 10 mg PO DAILY omeprazole 20 mg capsule,delayed release(DR/EC) 20 mg PO DAILY atorvastatin 10 MG tablet 10 mg PO HS losartan-hydrochlorothiazide 50-12.5 MG tablet 50 mg PO DAILY aspirin 81 MG tablet,chewable 81 mg PO DAILY Referrals Follow up/Referrals: Nato Mueller MD [Primary Care Provider] - See instructions Activity Restrictions/Add. Instructions Additional Instructions/Restrictions: *Increase fluids. Water not Soda or Tea *Start antibiotic immediately and be sure to take as ordered for the FULL length of time although you should start to see improvement over the next 48 hours *Be SURE to follow up anytime for new or worsening symptoms with your family doctor. AND in 48 hours for urine culture results with your family doctor, if you do not have a doctor then you may call back to the [facility] for urine culture results and further treatment. We do recommend that you choose and establish care with a Primary Care Physician. ?AND follow up with them ?in 10-14 days to repeat UA to ensure infection is resolved and blood no longer present *Be sure to let your PCP know that we sent urine cultures from the [facility] so they can follow up to ensure that you area the on the correct antibiotic Call your doctor office and make appointment for 48 hours (2 days from today) ?to follow up and get the results of your urine culture and further treatment Clinical Impressions Clinical Impression: UTI (urinary tract infection) Instructions Patient Instructions: Urinary Tract Infection, DI for Urinary Tract Infection (UTI), Cefdinir Discharge ED Provider: Monet Whitney [facility] HPI General Stated complaint: poss UTI Mode of Arrival: Ambulatory Source of Information: Patient Limitations: No Limitations Time Seen by Provider: 04/19/22 19:13 Description of Symptoms (Recalled from Triage Doc. by RN): PATIENT C/O LOWER BACK PAIN AND URINARY FREQUENCY TODAY. SHE STATES SHE WAS RECENTLY TREATED FOR A UTI WITH MICROBID BUT STOPPED IT AND DID NOT FOLLOW UP HEENT Symptoms (Recalled from RN notes): No Resp Symptoms (Recalled from RN notes): No Skin Symptoms (Recalled from RN notes): No MS Symptoms (Recalled from RN notes): No Functional Status (Recalled from RN notes): WNL History of Present Illness Provider Complaint: Patient states that she was recently seen and treated for UTI States that she was given Macrobid and it was making her sick so she stopped taking it but her symptoms was better States that now she has started having the same symptoms she had before States that she has been having low back ache and feeling of urgency and frequency Denies fever, chills or body aches Related Data Home Medications Medication Instructions Recorded Confirmed atorvastatin 10 mg tablet 10 mg PO HS Cholesterol 11/18/18 06/05/21 losartan 50 mg-hydrochlorothiazide 50 mg PO DAILY bp 11/18/18 06/05/21 12.5 mg tablet aspirin 81 mg chewable tablet 81 mg PO DAILY Blood thinner 12/21/18 06/05/21 escitalopram oxalate 10 mg tablet 10 mg PO DAILY 05/08/21 06/05/21 omeprazole 20 mg capsule,delayed 20 mg PO DAILY 05/08/21 06/05/21 release Previous Rx's Medication Instructions Recorded cefdinir 300 mg capsule 300 mg PO BID #14 caps 04/19/22 Allergies Allergy/AdvReac Type Severity Reaction Status Date / Time No Known Drug Allergies Allergy Unknown Verified 06/05/21 09:48 Worker's Comp Is this a Worker's Comp case?: No [facility] Disclaimer: The information contained in this section may have been updated after the patient was seen, as this information can be updated by other users. Social History Smoking Status: Former smoker pack-years: 35 second hand exposure: No alcohol intake: never current occupatio
[2022-04-19 19:25] VITALS: BP 170/58; PULSE 74; RESP 21; TEMP 36.4; O2SAT 98
[2022-04-19 19:38] LABS: Apearance,Urine Clear (Clear); Bilirubin,Urine Negative (Negative); Blood, Urine Trace (Negative); Color,Urine Yellow (Yellow); Glucose,Urine (UA) Negative (Negative); Ketones,Urine Negative (Negative); Protein,Urine Negative (Negative); UTC Leukocyte Esterase,Urine 2+ (Negative); UTC Nitrate,Urine Negative (Negative); Urobilinogen,Urine 0.2 EU/dl (0.2)
--- NOTE | 2022-04-23 10:30 | PC.NURSE ---
lab called with result. urine culture positive for MRSA. Ruslan Peace APRN notified. Called pt to let her know to stop current antibiotic and he would be sending her in a new antibiotic to cover MRSA.
--- NOTE | 2022-04-23 10:34 | PC.NURSE ---
ALSO INSTRUCTED PT TO FOLLOW UP WITH FAMILY DR. PT VERBALIZED UNDERSTANDING.
== END 2022-04-19 19:31 | disposition home or self-care (01) ==
PROVIDERS: Emergency Provider Nurse Practitioner; PCP Family Medicine
DX: N39.0 Urinary tract infection, site not specified (principal)
CPT/HCPCS: 81003; 87086; 87088; 87186; 99212; 99213; G0463

== ENCOUNTER → 2022-09-18 10:08 | Outpatient (CLI) | payer MEDICARE, MEDICAID, SELFPAY ==
--- NOTE | 2022-09-18 10:11 | MM_ITS ---
PROCEDURE INFORMATION: Exam: MG Bilateral Screening 3D Mammography Exam date and time: 09/18/2022 10:02 AM Age: 77 years old Clinical indication: Screening examination TECHNIQUE: Imaging protocol: Bilateral Screening tomosynthesis and 2D mammography including computer-aided detection (CAD) when performed. COMPARISON: 1. MG MM DIG SCREENING MAMM BI W/CAD 07/31/2021 10:45 AM 2. MG MM DIG SCREENING MAMM BI W/CAD 06/14/2020 9:22 AM FINDINGS: MAMMOGRAPHY: Breast composition: There are scattered areas of fibroglandular density. Mass: None. Architectural distortion: None. Calcifications: No suspicious calcifications. Asymmetric density: None. Skin thickening: None. Axillary adenopathy: None. IMPRESSION: No mammographic evidence of malignancy. Annual screening is recommended unless otherwise clinically indicated. ASSESSMENT: BI-RADS Category 1: Negative
== END ==
PROVIDERS: PCP Family Medicine; Visit Provider Family Medicine
DX: Z12.31 Encounter for screening mammogram for malignant neoplasm of breast (principal)
CPT/HCPCS: 77063; 77067

== ENCOUNTER 2023-02-23 19:25 | Emergency (ER) | payer MEDICARE, MEDICAID, SELFPAY ==
[2023-02-23 19:34] VITALS: BP 154/57; PULSE 70; RESP 18; TEMP 36.6; O2SAT 97; BMI 24.7
--- NOTE | 2023-02-23 19:48 | ED_ITS ---
Discharge Plan Disposition Patient Disposition: Home, Self-Care Condition: Good Prescriptions Prescriptions: New phenazopyridine [Pyridium] 200 mg tablet 200 mg PO Q8H 2 Days Qty: 6 0RF ciprofloxacin HCl [Cipro] 500 mg tablet 500 mg PO BID 7 Days Qty: 14 0RF No Action escitalopram oxalate 10 mg tablet 10 mg PO DAILY omeprazole 20 mg capsule,delayed release(DR/EC) 20 mg PO DAILY atorvastatin 10 MG tablet 10 mg PO HS losartan-hydrochlorothiazide 50-12.5 MG tablet 50 mg PO DAILY aspirin 81 MG tablet,chewable 81 mg PO DAILY cefdinir 300 mg capsule 300 mg PO BID Qty: 14 0RF doxycycline hyclate [doxycycline hyclate] 100 mg capsule 100 mg PO Q12 10 Days Qty: 20 0RF ondansetron 4 mg Tablet,Disintegrating 4 mg PO Q8H PRN (Reason: Nausea) Qty: 20 0RF Referrals Follow up/Referrals: Nato Mueller MD [Primary Care Provider] - See instructions Activity Restrictions/Add. Instructions Additional Instructions/Restrictions: Drink plenty of fluids. Take tylenol or ibuprofen for pain or fever. Take the medications as directed. Follow up with your regular doctor. GO TO THE ER FOR ANY WORSENING SYMPTOMS The pyridium will make your urine turn orange, this is an expected side effect. It will stain your clothes if it comes into contact with them. We will culture the urine. That will tell what bacteria is causing your infection and which antibiotics will treat it best. Sometimes the first antibiotic we prescribe turns out to not work against different bacteria. So, make sure you follow up within 3 days if you are not getting better. Clinical Impressions Clinical Impression: UTI (urinary tract infection) Instructions Patient Instructions: DI for Urinary Tract Infection (UTI), Phenazopyridine Discharge ED Provider: Ruslan Peace [facility] General Stated complaint: back pain Time Seen by Provider: 02/23/23 19:48 History of Present Illness Provider Complaint: She states that for the past 3 days she has had low back pain and urinary urgency. Related Data Home Medications Medication Instructions Recorded Confirmed atorvastatin 10 mg tablet 10 mg PO HS Cholesterol 11/18/18 06/05/21 losartan 50 mg-hydrochlorothiazide 50 mg PO DAILY bp 11/18/18 06/05/21 12.5 mg tablet aspirin 81 mg chewable tablet 81 mg PO DAILY Blood thinner 12/21/18 06/05/21 escitalopram oxalate 10 mg tablet 10 mg PO DAILY 05/08/21 06/05/21 omeprazole 20 mg capsule,delayed 20 mg PO DAILY 05/08/21 06/05/21 release Previous Rx's Medication Instructions Recorded cefdinir 300 mg capsule 300 mg PO BID #14 caps 04/19/22 doxycycline hyclate 100 mg capsule 100 mg PO Q12 10 days #20 caps 04/23/22 ondansetron 4 mg disintegrating 4 mg PO Q8H PRN Nausea #20 tabs 04/23/22 tablet ciprofloxacin HCl 500 mg tablet 500 mg PO BID 7 days #14 tabs 02/23/23 (Cipro) phenazopyridine 200 mg tablet 200 mg PO Q8H 2 days #6 tabs 02/23/23 (Pyridium) Allergies Allergy/AdvReac Type Severity Reaction Status Date / Time No Known Drug Allergies Allergy Unknown Verified 06/05/21 09:48 PFSH PFS Disclaimer: The information contained in this section may have been updated after the patient was seen, as this information can be updated by other users. Social History Smoking Status: Former smoker second hand exposure: No alcohol intake: never current occupational status: other Travel in the last 8 weeks: Inside the [place] household members: none housing: apartment current occupational exposures/hazards: No caffeine: Yes ROS Obtained: Yes All systems reviewed & no additional complaints except as documented Constitutional Constitutional: Reports system reviewed and no additional complaints, except as documented, Denies chills and Denies fever(s) Eyes Eyes: Denies eye discharge ENT Ears, Nose, Mouth, and Throat: Denies dysphagia, Denies sore throat and Denies throat swelling Cardiovascular Cardiovascular: Denies chest pain and Denies dyspnea Respiratory Respiratory: Denies chest congestion, Denies cough and Denies dyspnea Gastrointestinal Gastrointestingal: Denies abdominal pain, constipation, diarrhea, dysphagia, nausea or vomiting Genitourinary Female Genitourinary: Reports as per HPI, Reports dysuria, Reports urinary frequency, Denies urinary incontinence, Reports urinary hesitancy and Reports urinary urgency Musculoskeletal Musculoskeletal: Denies arthralgias and Reports back pain Integumentary/Breasts Skin/Breast: Denies rash Neurologic Neurologic: Denies paresthesias Allergic/Immunologic Allergic/Immunologic: Denies throat swelling Physical Exam General General appearance: alert and in no apparent distress Head Head exam: atraumatic, normocephalic and normal inspection Eye Eye exam: Present normal appearance, PERRL and EOMI ENT ENT exam: Present mucous membranes moist and normal external ear exam Expanded ENT Exam TM/Canal exam: Bilateral TM: erythema and bulging Nose exam: Absent sinus tenderness Mouth exam: Present normal external inspection; Absent drooling Teeth exam: Present normal inspection Throat exam: Present tonsillar erythema, tonsillomegaly and tonsillar exudate Neck Neck exam: Present normal inspection, full ROM and trachea midline; Absent tenderness, meningismus or lymphadenopathy Chest Chest inspection: Present normal inspection and symmetric chest wall rise; Absent tenderness Respiratory Respiratory exam: Present normal lung sounds bilaterally; Absent respiratory distress, wheezes or stridor Cardiovascular Cardiovascular exam: Present regular rate and normal rhythm; Absent systolic murmur or diastolic murmur Abdominal Exam Abdominal exam: Present soft and normal bowel sounds; Absent distention, tenderness, guarding, rebound or rigidity Extremities Exam Extremities exam: Present normal inspection and normal capillary refill; Absent calf tenderness Back Exam Back exam: Present normal inspection and full ROM; Absent tenderness, CVA tenderness (R) or CVA tenderness (L) Neurological Exam Neurological exam: Present alert, oriented X3 and CN II-XII intact Psychiatric Psychiatric exam: Present normal affect and normal mood Skin Skin exam: Present warm, dry, intact and normal color Medical Decision Making Medical Records Medical records reviewed: No I reviewed the patient's medical records. Armando Inquiry Pt receiving controlled substance: No
[2023-02-23] MEDS: levoFLOXacin 500MG TAB 500 MG PO (19:58)
[2023-02-23 20:03] LABS: Apearance,Urine Clear (Clear); Color,Urine Yellow (Yellow); PH,Urine 6.5 (5.0-8.5)
[2023-02-23 20:04] LABS: Bilirubin,Urine Negative (Negative); Blood, Urine Negative (Negative); Glucose,Urine (UA) Negative (Negative); Ketones,Urine Negative (Negative); Protein,Urine Negative (Negative); Specific Gravity, Urine 1.015 (1.005-1.030); UTC Leukocyte Esterase,Urine 1+ (Negative); UTC Nitrate,Urine Negative (Negative); Urobilinogen,Urine 0.2 EU/dl (0.2)
[2023-02-23 20:12] VITALS: BP 154/57; PULSE 70; RESP 18; TEMP 36.6; O2SAT 97
== END 2023-02-23 20:12 | disposition home or self-care (01) ==
PROVIDERS: Emergency Provider Nurse Practitioner Family; PCP Family Medicine
DX: N39.0 Urinary tract infection, site not specified (principal); B96.89 Other specified bacterial agents as the cause of diseases classified elsewhere; M54.59 Other low back pain; Z87.891 Personal history of nicotine dependence
CPT/HCPCS: 81003; 87086; 99212; 99214; G0463

== ENCOUNTER 2023-06-01 08:41 | Outpatient (CLI) | payer MEDICARE, SELFPAY ==
--- NOTE | 2023-06-01 08:56 | US_ITS ---
FINAL REPORT TECHNIQUE: Ultrasound images of the abdomen were obtained. CLINICAL HISTORY: ABDOMINAL PAIN COMPARISON: None FINDINGS: ABDOMINAL ULTRASOUND COMPLETE: The liver is fatty infiltrated. The gallbladder is absent. The common duct is normal. The right kidney measures 8.9 cm in length and is normal in echogenicity without hydronephrosis. The left kidney measures 8.6 cm in length and is normal in echogenicity without hydronephrosis. There are calcified granulomas in the spleen. The pancreas is obscured by overlying bowel gas. The visualized portions of the aorta and the IVC are normal. The vena cava is unremarkable. IMPRESSION: Fatty liver. Reviewed, Interpreted and Dictated by Vasu Matamoros MD Transcribed by Tami Marley Authenticated and [facility]
== END 2023-06-01 23:59 | disposition home or self-care (01) ==
LOC: RAD 08:42
PROVIDERS: PCP Family Medicine; Visit Provider Family Medicine
DX: R10.9 Unspecified abdominal pain (principal)
CPT/HCPCS: 76700

== ENCOUNTER 2023-07-22 10:15 | Outpatient (CLI) | payer MEDICARE, SELFPAY ==
--- NOTE | 2023-07-22 10:21 | MM_ITS ---
PROCEDURE INFORMATION: Exam: MG Bilateral Screening 3D Mammography Exam date and time: 07/22/2023 10:08 AM Age: 78 years old Clinical indication: Screening mammogram TECHNIQUE: Imaging protocol: Bilateral Screening tomosynthesis and 2D mammography including computer-aided detection (CAD) when performed. COMPARISON: 1. MG MM DIG SCREENING MAMM BI W/CAD 09/18/2022 10:02 AM 2. MG MM DIG SCREENING MAMM BI W/CAD 07/31/2021 10:45 AM 3. MG MM DIG SCREENING MAMM BI W/CAD 06/14/2020 9:22 AM 4. MG MM DIG SCREENING MAMM BI W/CAD 05/22/2019 9:58 AM FINDINGS: MAMMOGRAPHY: Breast composition: There are scattered areas of fibroglandular density. Mass: None. Architectural distortion: No new or suspicious architectural distortion. Calcifications: No new or suspicious calcifications are present Asymmetric density: No new or suspicious asymmetric density is present Skin thickening: None. Axillary adenopathy: None. IMPRESSION: No mammographic evidence of malignancy. Recommend annual screening mammography unless otherwise clinically indicated. ASSESSMENT: BI-RADS category 1: Negative.
== END 2023-07-22 23:59 | disposition home or self-care (01) ==
LOC: RAD 10:15
PROVIDERS: PCP Family Medicine; Visit Provider Family Medicine
DX: Z12.31 Encounter for screening mammogram for malignant neoplasm of breast (principal)
CPT/HCPCS: 77063; 77067

== ENCOUNTER 2023-09-14 15:50 | Emergency (ER) | payer MEDICARE, SELFPAY ==
[2023-09-14] VITALS (7 sets, daily range): BP systolic 146–197; BP diastolic 56–74; PULSE 62–74; RESP 17–18; TEMP 36.8; O2SAT 96–99; BMI 25.7
--- NOTE | 2023-09-14 15:55 | ED_ITS ---
<Statement entered by Christina Griffin DO - 09/14/23 18:30> I was consulted by the SOPHY, and we discussed the complexity of the problems being addressed. I approved the treatment and management plan for this patient's care in the emergency department, thus performing a substantive portion of the medical decision making. Christina Griffin DO Discharge Plan Disposition Patient Disposition: Home, Self-Care Condition: Good Prescriptions Prescriptions: No Action escitalopram oxalate 10 mg tablet 10 mg PO DAILY omeprazole 20 mg capsule,delayed release(DR/EC) 20 mg PO DAILY atorvastatin 10 MG tablet 10 mg PO HS losartan-hydrochlorothiazide 50-12.5 MG tablet 50 mg PO DAILY aspirin 81 MG tablet,chewable 81 mg PO DAILY phenazopyridine [Pyridium] 200 mg tablet 200 mg PO Q8H 2 Days Qty: 6 0RF ciprofloxacin HCl [Cipro] 500 mg tablet 500 mg PO BID 7 Days Qty: 14 0RF Referrals Follow up/Referrals: Nato Mueller MD [Primary Care Provider] - See instructions Activity Restrictions/Add. Instructions Additional Instructions/Restrictions: Return to the ER for intractable headache change in vision taste smell level of consciousness or intractable nausea vomiting. He may take Tylenol Motrin as needed for symptomatic headache and pain. Clinical Impressions Clinical Impression: Fall Qualifiers: Encounter type: initial encounter Qualified Code(s): W19.XXXA - Unspecified fall, initial encounter Stand Alone Forms Stand Alone Forms: Work/School Release Instructions Patient Instructions: DI for Closed Head Injury Print Language Print Language: Armenian Discharge ED Provider: Christina Griffin General Adult HPI General Chief complaint: Fall Stated complaint: AO 09-14-23 Fell backwards at home , hit head Time Seen by Provider: 09/14/23 15:55 History of Present Illness HPI narrative: Patient presents for evaluation of a fall. Patient was in her home walking backwards to look down her hallway out the back door when she accidentally tripped over a stool. She fell backwards striking her right hand buttocks and head primarily. She did not lose consciousness. She is not sure what she struck if it was the doorway or the floor. Patient was able to arise on her own and came to the ER for evaluation. Patient reports that she has pain in the occiput but no midline C-spine tenderness and pain just proximal to the anatomical snuffbox of the right hand. She reports a posterior type headache but no blurred vision change in sense of taste or smell. Patient is on no blood thinners including no aspirin. Related Data Home Medications ?Medication ?Instructions ?Recorded ?Confirmed atorvastatin 10 mg tablet 10 mg PO HS Cholesterol 11/18/18 06/05/21 losartan 50 mg-hydrochlorothiazide 50 mg PO DAILY bp 11/18/18 06/05/21 12.5 mg tablet aspirin 81 mg chewable tablet 81 mg PO DAILY Blood thinner 12/21/18 06/05/21 escitalopram oxalate 10 mg tablet 10 mg PO DAILY 05/08/21 06/05/21 omeprazole 20 mg capsule,delayed 20 mg PO DAILY 05/08/21 06/05/21 release Previous Rx's ?Medication ?Instructions ?Recorded ciprofloxacin HCl 500 mg tablet 500 mg PO BID 7 days #14 tabs 02/23/23 (Cipro) phenazopyridine 200 mg tablet 200 mg PO Q8H 2 days #6 tabs 02/23/23 (Pyridium) Allergies Allergy/AdvReac Type Severity Reaction Status Date / Time No Known Drug Allergies Allergy Unknown Verified 02/23/23 19:58 [facility] Disclaimer: The information contained in this section may have been updated after the patient was seen, as this information can be updated by other users. Social History Smoking Status: Never smoker second hand exposure: No alcohol intake: never current occupational status: other Travel in the last 8 weeks: Inside the [place] household members: none housing: apartment current occupational exposures/hazards: No caffeine: Yes ROS Obtained: Yes Systems reviewed as appropriate & no additional complaints except as documented Physical Exam General General appearance: alert and in no apparent distress Head Head exam: atraumatic, normal inspection and other (Patient is tender to palp patient around the occiput but no visible trauma noted including abrasion ecchymosis edema erythema or bony deformity to palpation) Eye Eye exam: Present normal appearance, PERRL and EOMI ENT ENT exam: Present normal exam, normal oropharynx and mucous membranes moist Neck Neck exam: Present normal inspection and full ROM; Absent tenderness Chest Chest inspection: Present normal inspection and symmetric chest wall rise Respiratory Respiratory exam: Present normal lung sounds bilaterally; Absent accessory muscle use Cardiovascular Cardiovascular exam: Present regular rate and normal rhythm Abdominal Exam Abdominal exam: Present soft and normal bowel sounds; Absent tenderness Extremities Exam Extremities exam: Present normal inspection; Absent full ROM (Due to pain in the right wrist) or tenderness (Tender to palpation at the right wrist at the base of the thumb but not directly in the anatomical snuffbox. No ecchymosis edema obvious or palpable deformity. Patient is neurovascularly tact distally.) Back Exam Back exam: Present normal inspection and full ROM; Absent tenderness Neurological Exam Neurological exam: Present alert, oriented X3 and CN II-XII intact Psychiatric Psychiatric exam: Present normal affect and normal mood Skin Skin exam: Present warm, dry and normal color Medical Decision Making Medical Records Medical records reviewed: Yes I reviewed the patient's medical records. Armando Inquiry Pt receiving controlled substance: No Vital Signs: 09/14/23 15:52 09/14/23 15:57 09/14/23 16:00 Temperature 98.2 F Temperature Source Oral Pulse Rate 71 72 Pulse Rate [Radial] 74 Respiratory Rate 18 Blood Pressure 185/71 H 159/72 H Blood Pressure [Right Arm] 185/71 H Blood Pressure Mean [Right Arm] 109 Blood Pressure Source [Right Arm] Automatic Cuff Blood Pressure Position [Right Arm] Sitting 02 Sat by Pulse Oximetry 98 98 99 Oxygen Delivery Method Room Air 09/14/23 16:31 09/14/23 17:01 09/14/23 17:30 Temperature Temperature Source Pulse Rate 64 67 67 Pulse Rate [Radial] Respiratory Rate Blood Pressure 197/74 H 153/56 H 146/62 H Blood Pressure [Right Arm] Blood Pressure Mean [Right Arm] Blood Pressure Source [Right Arm] Blood Pressure Position [Right Arm] 02 Sat by Pulse Oximetry 99 97 96 Oxygen Delivery Method 09/14/23 17:49 Temperature 98.2 F Temperature Source Oral Pulse Rate 62 Pulse Rate [Radial] Respiratory Rate 17 Blood Pressure 146/62 H Blood Pressure [Right Arm] Blood Pressure Mean [Right Arm] Blood Pressure Source [Right Arm] Blood Pressure Position [Right Arm] 02 Sat by Pulse Oximetry Oxygen Delivery Method Room Air Orders (Tests/Meds): ED MEDICATIONS Discontinued Medications Generic Name Dose Route Start Last Admin Trade Name Freq PRN Reason Stop Dose Admin Acetaminophen 1,000 mg 09/14/23 16:01 09/14/23 16:21 Acetaminophen 500mg Tab PO 09/14/23 16:02 1,000 mg ONCE ONE Administration ORDERS Category Date Time Status CT cervical spine wo con Stat Cat Scan 09/14/23 16:[address] head/brain wo con Stat Cat Scan 09/14/23 16:01 Completed Forearm XR right 2 views [XR forearm RT 2V] Stat Exams 09/14/23 16:01 Completed Hand XR right minimum 3 views [XR hand RT min 3V] Stat Exams 09/14/23 16:01 Completed Wrist XR right 2 views [XR wrist RT 2V] Stat Exams 09/14/23 16:01 Taken Medical Decision Narrative: In summary patient is a 78-year-old female who presents to the emergency department for evaluation of fall. Patient is hemodynamically stable upon arrival, afebrile. Physical exam is remarkable for tenderness to palpation at the occiput but no midline dorsal spine tenderness, no evidence of contusions abrasions ecchymosis deformities or lacerations anywhere on her body. Patient also is tender to palpation at the left wrist at the base of the right thumb but again no obvious deformity visually or palpation no ecchymosis edema abrasions. Patient is neurovascularly intact distally and has full but painful range of motion.. Differential diagnosis includes contusion versus intracranial injury versus skull fracture versus cranial hemorrhage versus wrist sprain versus ligamentous injury of the hand versus fracture. [address] [place] C-spine and head injury rules patient is low risk. Initial workup will be conducted with CT scan of the head and C-spine plain films of the right upper extremity including the wrist hand and forearm. Initial interventions include acetaminophen only for now. Initial workup reviewed by me and her CT scans and plain film imaging shows no acute fracture or intracranial injury nor fracture of the wrist and hand. Upon repeat evaluation patient did report improvement of her headache after initial intervention. Given this patient is appropriate for discharge with strict return precautions for closed head injury. Critical Care Critical Care Time Critical Care Time: No
--- NOTE | 2023-09-14 16:01 | XR_ITS ---
FINAL REPORT CLINICAL HISTORY: Right wrist pain after fall COMPARISON: None FINDINGS: Two views of the right wrist were obtained. There is no acute fracture or dislocation. There are hypertrophic changes of the right ulnar styloid. There is moderate narrowing of the radiocarpal joint space. There is no acute soft tissue abnormality. IMPRESSION: No acute abnormality identified. Reviewed, Interpreted and Dictated by Vasu Matamoros MD Transcribed by Tami Marley Authenticated and [facility]
--- NOTE | 2023-09-14 16:01 | CT_ITS ---
FINAL REPORT TECHNIQUE: Axial images were obtained of the cervical spine by computed tomography. Coronal and sagittal reconstruction process performed. This study was performed with techniques to keep radiation doses as low as reasonably achievable (ALARA). Individualized dose reduction techniques using automated exposure control or adjustment of mA and/or kV according to the patient''s size were employed. CLINICAL HISTORY: Fall FINDINGS: No acute fracture is identified. There is advanced disc space narrowing at C5-6 and C6-7. There is reversal of the normal cervical lordosis. There is significant endplate hypertrophy at C5-6 and C6-7 resulting in moderate bilateral neural foraminal narrowing. There is no malalignment. The facets are properly aligned. IMPRESSION: Advanced degenerative disease at C5-6 and C6-7 without acute process. Reviewed, Interpreted and Dictated by Vasu Matamoros MD Transcribed by Harper Egan Authenticated and [facility]
--- NOTE | 2023-09-14 16:01 | XR_ITS ---
FINAL REPORT CLINICAL HISTORY: Fall, right hand pain COMPARISON: None FINDINGS: RIGHT HAND Three views demonstrate no acute fracture or dislocation. There is mild DIP and PIP joint space narrowing consistent with osteoarthritis. There are mild hypertrophic changes of the basilar joint. The soft tissues are unremarkable. IMPRESSION: No acute bony abnormality. Reviewed, Interpreted and Dictated by Vasu Matamoros MD Transcribed by Tami Marley Authenticated and [facility]
--- NOTE | 2023-09-14 16:01 | XR_ITS ---
FINAL REPORT CLINICAL HISTORY: Fall, right forearm pain COMPARISON: None FINDINGS: 2 views of the right forearm were obtained. There is no acute fracture or dislocation. The joints are intact. There are no soft tissue abnormalities. IMPRESSION: No acute process. Reviewed, Interpreted and Dictated by Vasu Matamoros MD Transcribed by Tami Marley Authenticated and [facility]
--- NOTE | 2023-09-14 16:01 | CT_ITS ---
FINAL REPORT TECHNIQUE: Axial images were performed through the brain.This study was performed with techniques to keep radiation doses as low as reasonably achievable, (ALARA). Individualized dose reduction techniques using automated exposure control or adjustment of mA and/or kV according to the patient''s size were employed. CLINICAL HISTORY: Fall FINDINGS: There is wydq-ws-dziknbjm atrophy. The ventricles are normal in size for the degree of atrophy. There is no extra-axial fluid or midline shift. There is no evidence of acute hemorrhage or mass. There is mild mucoperiosteal thickening in the right maxillary sinus. IMPRESSION: Nykj-mc-ptgjtequ atrophy. No acute intracranial process. Reviewed, Interpreted and Dictated by Vasu Matamoros MD Transcribed by Harper Egan Authenticated and . [facility]
[2023-09-14] MEDS: ACETAMINOPHEN 500MG TAB 1000 MG PO (16:21)
== END 2023-09-14 17:55 | disposition home or self-care (01) ==
PROVIDERS: Emergency Provider Emergency Medicine; PCP Family Medicine
DX: R51.9 Headache, unspecified (principal); M25.531 Pain in right wrist; W01.10XA Fall on same level from slipping, tripping and stumbling with subsequent striking against unspecified object, initial encounter
CPT/HCPCS: 70450; 72125; 73090; 73100; 73130; 99285

== ENCOUNTER 2024-08-16 14:29 | Outpatient (CLI) | payer MEDICARE, SELFPAY ==
--- NOTE | 2024-08-16 14:32 | MR_ITS ---
PROCEDURE INFORMATION: Exam: MR Cervical Spine Without Contrast Exam date and time: 08/16/2024 2:57 PM Age: 79 years old Clinical indication: Neck pain; Additional info: Neck pain/trapezius muscle strain. Cervical pain for 2 weeks, pain radiates between shoulders. Headaches. TECHNIQUE: Imaging protocol: Magnetic resonance imaging of the cervical spine without contrast. COMPARISON: CT CERVICAL SPINE WO CON 09/14/2023 4:16 PM FINDINGS: Bones/joints: No fracture. 1 mm anterolisthesis at C2-C3, C3-C4, and C4-C5 is unchanged. No bone marrow edema. Disc space narrowing at C5-C6 and C6-C7. Spinal cord: Normal signal. No cord compression. C2-C3: No significant disc bulge or herniation. No severe spinal canal stenosis. No significant neural foraminal narrowing. C3-C4: No significant disc bulge or herniation. No severe spinal canal stenosis. No significant neural foraminal narrowing. C4-C5: Mild concentric disc bulge. No severe spinal canal stenosis. No significant neural foraminal narrowing. C5-C6: Disc bulge osteophyte complex causes mild spinal canal stenosis. No significant neural foraminal narrowing. Moderate disc space narrowing C6-C7: No significant disc bulge or herniation. No severe spinal canal stenosis. No significant neural foraminal narrowing. Qbyl-zj-zaokompn disc space narrowing. C7-T1: No significant disc bulge or herniation. No severe spinal canal stenosis. No significant neural foraminal narrowing. Soft tissues: No soft tissue thickening or masses. Vasculature: Expected flow voids in the vertebral arteries. IMPRESSION: 1. Vqge-eh-agfqxyhu spinal stenosis at C5-C6 due to disc bulge osteophyte complex. 2. No focal disc protrusions or additional significant spinal stenosis. 3. Multilevel degenerative disc disease is unchanged since 09/14/2023.
== END 2024-08-16 23:59 | disposition home or self-care (01) ==
LOC: RAD 14:29
PROVIDERS: PCP Family Medicine; Visit Provider Nurse Practitioner
DX: M48.02 Spinal stenosis, cervical region (principal); M50.322 Other cervical disc degeneration at C5-C6 level; M50.321 Other cervical disc degeneration at C4-C5 level; M50.323 Other cervical disc degeneration at C6-C7 level; S46.819A Strain of other muscles, fascia and tendons at shoulder and upper arm level, unspecified arm, initial encounter
CPT/HCPCS: 72141

== ENCOUNTER 2024-08-31 08:53 | Day surgery (SDC) | payer MEDICARE, SELFPAY ==
--- NOTE | 2024-08-31 07:38 | EXP.HP ---
History of Present Illness *Admission Date: 08/31/24 *Reason for visit:: Noncardiac chest pain, nausea, belching and acid reflux *History of present illness: Mrs. Zacarias is a 79-year-old female with nausea, belching, reflux and noncardiac chest pain for upper endoscopy and screening/surveillance with strong family history (sister with colon cancer) for colonoscopy who is here for diagnostic EGD and screening colonoscopy. The examination is deemed medically necessary for EGD and colonoscopy. The patient has been seen, interviewed and examined prior to the procedure by both myself and the anesthesia provider. [facility] Disclaimer: The information contained in this section may have been updated after the patient was seen, as this information can be updated by other users. Medical History (Updated 08/31/24 @ 10:44 by Kimo Newsome II, MD) Melanoma Loose left total knee arthroplasty Hyperlipidemia Hypertension History of gastroesophageal reflux (GERD) Surgical History (Updated 08/31/24 @ 09:18 by Elysia Ignacio RN) Hx of cholecystectomy H/O: hysterectomy History of colon resection Family History (Updated 08/31/24 @ 09:24 by Elysia Ignacio RN) Mother Stroke Father Stroke Sister Diabetes Cancer of colon Cancer of lung Social History (Updated 08/31/24 @ 10:05 by Ramiro Nielson CRNA) Smoking Status: Never smoker second hand exposure: No alcohol intake: never substance use type: denies use current occupational status: other Travel in the last 8 weeks?: Inside the [place] household members: none housing: apartment current occupational exposures/hazards: No caffeine: Yes Have you lived/traveled outside US in past 30 days?: No Contact w/someone who lives/traveled outside US past 30 days?: No Exposure to someone with infectious disease in past 14 days?: No Do you have a fever (greater than 100.4 F or 38 C)?: No Have you tested positive for COVID-19?: No Exposed to someone with COVID-19 in past 14 days?: No Do you have a sore throat?: No Do you have a cough?: No Do you have any weakness?: No Do you have any diarrhea?: No Are you experiencing any unusual bleeding?: No Do you have any muscle aches/pain?: No Do you have any abdominal pain?: No Are you experiencing loss of taste or smell?: No Other Medical History Have you received the Flu Vaccine for this season: Yes Have you received the Pneumonia Vaccine: No Review of Systems Review of Systems Review of systems (narrative): Negative *Cardiovascular Comments: Negative *Gastrointestinal Comments: Negative *Genitourinary Comments: Negative *Musculoskeletal Comments: Negative *Neurologic Comments: Negative Meds Home Medications and Allergies Home Medications ?Medication ?Instructions ?Recorded ?Confirmed ?Type losartan 50 mg-hydrochlorothiazide 50 mg PO DAILY bp 11/18/18 08/31/24 History 12.5 mg tablet escitalopram oxalate 10 mg tablet 10 mg PO DAILY 05/08/21 08/31/24 History omeprazole 20 mg capsule,delayed 20 mg PO DAILY 05/08/21 08/31/24 History release alprazolam 0.25 mg tablet 0.25 mg PO HS 04/26/24 08/31/24 History bupropion HCl 150 mg 24 hr tablet, 150 mg PO ONCE 04/26/24 08/31/24 History extended release sodium,potassium,mag sulfates 17.5 See Rx Instructions PO .COMPLEX 06/14/24 Rx gram-3.13 gram-1.6 gram oral soln #354 mL (Suprep Bowel Prep Kit) fexofenadine 30 mg disintegrating 60 mg PO DAILY 08/30/24 08/31/24 History tablet New Prescriptions to Start Prescriptions: Allergies Allergy/AdvReac Type Severity Reaction Status Date / Time No Known Drug Allergies Allergy Unknown Other Verified 08/31/24 09:15 Exam *Routine HEENT Exam Head: Present normocephalic Eye: Present EOMI and PERRL ENT: Present mucous membranes moist *Routine Neck Exam Neck: Present supple *Routine Respiratory Exam Respiratory: Present CTA bilaterally *Routine Cardiovascular Exam Cardiovascular: Present RRR *Routine Abdominal Exam Abdominal: Present soft and normoactive bowel sounds; Absent tenderness *Routine Rectal Exam Rectal:: deferred *Routine Genitalia Exam Genitalia:: deferred *Routine Extremities Exam Extremities: Absent cyanosis, clubbing or edema *Routine Skin Exam Skin: Present warm; Absent rash *Routine Neurological Exam Neurological: Present alert and oriented X3 Assessment and Plan *Assessment and plan (1) Belching: Status: Acute Category: Medical Code(s): R14.2 - Eructation (2) Bloating: Status: Acute Category: Medical Code(s): R14.0 - Abdominal distension (gaseous) (3) Acid reflux: Status: Acute Category: Medical Code(s): K21.9 - Gastro-esophageal reflux disease without esophagitis (4) Family history of colon cancer: Status: Acute Category: Medical Code(s): Z80.0 - Family history of malignant neoplasm of digestive organs (5) Non-cardiac chest pain: Status: Acute Category: Medical Code(s): R07.89 - Other chest pain (6) Dyspepsia: Status: Acute Category: Medical Code(s): R10.13 - Epigastric pain (7) Loose bowel movements: Status: Acute Category: Medical Code(s): R19.5 - Other fecal abnormalities Plan A/P: 1. Belching, nausea, reflux, bloating and noncardiac chest pain for EGD and screening with family history of colon cancer for colonoscopy is the preprocedural diagnosis. The patient will be anesthetized/sedated using MAC sedation. The patient has been seen and examined. Cardiac and lung assessment prior to the examination is stable. Proceed with planned EGD and colonoscopy.
[2024-08-31 09:10] VITALS: BMI 25.7
[2024-08-31 09:25] VITALS: BP 127/52; PULSE 91; RESP 18; TEMP 36.1; O2SAT 97
[2024-08-31] MEDS: LACTATED RINGERS 1000ML 1,000 ML 50 ML IV (09:34)
--- NOTE | 2024-08-31 10:03 | P.PNANES_ITS ---
[facility] Disclaimer: The information contained in this section may have been updated after the patient was seen, as this information can be updated by other users. Medical History (Updated 08/31/24 @ 09:18 by Elysia Ignacio RN) Melanoma Loose left total knee arthroplasty Hyperlipidemia Hypertension History of gastroesophageal reflux (GERD) Surgical History (Updated 08/31/24 @ 09:18 by Elysia Ignacio RN) Hx of cholecystectomy H/O: hysterectomy History of colon resection Family History (Updated 08/31/24 @ 09:24 by Elysia Ignacio RN) Mother Stroke Father Stroke Sister Diabetes Cancer of colon Cancer of lung Social History Smoking Status: Never smoker second hand exposure: No alcohol intake: never substance use type: denies use current occupational status: other Travel in the last 8 weeks?: Inside the [place] household members: none housing: apartment current occupational exposures/hazards: No caffeine: Yes [facility] Anesthesia Checklist Patient Identification Patient Identification: Arm Band and Family Structural Data Admitted From: Home Planned Operative Procedure/s: EGD/Colonoscopy Consent for Planned Operative Procedure(s) Verified: Yes Verified Documents: Surgical Consent and History and Physical NPO Status Verified Time NPO: 00:00 Additional verifications Patient : No Anesthesia Reactions: No Hx Blood Transfusions: No Blood Transfusion Reaction: No Cephalosporin Allergy: No Previous Colonoscopy: Yes Airway Assessment Mallampati Score:: Class II C-Spine Mobility Assessed: Yes TMJ Mobility Assessed: Yes Dentition: Good Dentition Neurological Assessment Level of Consciousness: Awake, Alert, Appropriate and Follows Commands Hx Seizures: No Numbness or tingling in extremities: No Anesthesia Plan Anesthesia Risk discussed: Yes ASA Class: II Anesthesia Type: MAC Preoperative Comments Pre-Operative Comments: Htn. Frequent UTIs. EGD for heart burn . Screening for Colonoscopy. S/P colon resection.
--- NOTE | 2024-08-31 10:44 | HMH.PROCNOTE ---
[facility] Procedure Note Date: 08/31/24 Time: 10:51 Procedure Note:: Upper Endoscopy Procedure Report: Esophagogastroduodenoscopy with cold biopsies Endoscopost: Kimo Newsome II, MD Referring Physician: Caitlyn Mueller M.D. Date of Procedure: August 31, 2024 Equipment: Olympus GIF 190 standard upper endoscope Sedation: MAC sedation Indications: Mrs. Zacarias is a 79-year-old female who is here for diagnostic EGD and screening colonoscopy. The upper endoscopy was performed because of her frequent dyspepsia with epigastric abdominal discomfort, bloating, early satiety and occasional nausea. She also gets retrosternal chest pain (noncardiac chest pain) which is relieved by belching. She does get heartburn and reflux. She is on omeprazole 20 mg daily. She has had bowel obstructions with prior exploratory surgery more than 1-2 decades ago. She does report looser bowel movements. She reports no dysphagia or vomiting. She does get a lot of bloating and gassiness. The patient reports no rectal bleeding or weight loss. She does state that her sister had colon cancer in her 20s. The patient's last colonoscopy in [place] was around 5 years ago and she had a couple of benign polyps removed. Procedure: Prior to the procedure, a history and physical exam was performed, and patient's medications and allergies were reviewed. The risks, benefits and alternatives of the sedation and procedure were discussed with the patient. All questions were answered and informed consent was obtained. The patient was brought to the procedure room. Patient identification and proposed procedure were verified by the physician and the nurse. The patient was placed in a left lateral decubitus position and the scope was passed under direct vision. Throughout the procedure, the patient's blood pressure, pulse, and oxygen saturations were monitored continuously. The upper GI endoscopy was accomplished without difficulty. The patient tolerated the procedure well. Findings: The scope was passed directly into the upper esophagus and advanced to the fourth portion of duodenum and proximal jejunum. A cold biopsy was taken from the proximal jejunum for the disaccharidase assay. The proximal jejunum, post bulbar duodenum, ampulla and duodenal bulb were normal with normal mucosa and conniventes. The scope was withdrawn through a normal duodenal bulb and pylorus into the stomach. There is very mild linear gastropathy of the antrum. Cold biopsies were obtained. The body and fundus of the stomach were normal. Upon retroflexion there was a very small sliding 1 to 2 cm hiatal hernia. The scope was then withdrawn into the esophagus. There was no evidence of reflux esophagitis or Guevara's. There were some tertiary contractions and evidence of moderate esophageal dysmotility. The remainder of the esophageal mucosa was normal. Impression: 1. Nonerosive GERD with moderate esophageal dysmotility and very small sliding 1 to 2 cm hiatal hernia 2. Mild linear reactive gastropathy of antrum Plan: I will follow-up the biopsies and disaccharidase assay. The patient does have functional dyspepsia and functional GERD. We will discuss additional treatment options. I will proceed with colonoscopy.
--- NOTE | 2024-08-31 10:53 | P.PCN_ITS ---
[facility] Procedure Note Date: 08/31/24 Time: 11:05 Procedure Note:: Colonoscopy Procedure Report: Colonoscopy Endoscopist: Kimo Newsome II, MD Referring physician: Caitlyn Mueller M.D. Date of Procedure: August 31, 2024 Equipment: Olympus 190 variable stiffness pediatric colonoscope Sedation: MAC sedation Indication: Mrs. Zacarias is a 79-year-old female who is here for diagnostic EGD and screening colonoscopy. The upper endoscopy was performed because of her frequent dyspepsia with epigastric abdominal discomfort, bloating, early satiety and occasional nausea. She also gets retrosternal chest pain (noncardiac chest pain) which is relieved by belching. She does get heartburn and reflux. She is on omeprazole 20 mg daily. She has had bowel obstructions with prior exploratory surgery more than 1-2 decades ago. She does report looser bowel movements. She reports no dysphagia or vomiting. She does get a lot of bloating and gassiness. The patient reports no rectal bleeding or weight loss. She does state that her sister had colon cancer in her 20s. The patient's last colonoscopy in [place] was around 5 years ago and she had a couple of benign polyps removed. Procedure: Prior to the procedure, a history and physical exam was performed, and patient's medications and allergies were reviewed. The risks, benefits and alternatives of the sedation and procedure were discussed with the patient. All questions were answered and informed consent was obtained. The patient was brought to the procedure room. Patient identification and proposed procedure were verified by the physician and the nurse. The patient was placed in a left lateral decubitus position and the scope was passed under direct vision. Throughout the procedure, the patient's blood pressure, pulse, and oxygen saturations were monitored continuously. The colonoscopy was accomplished without difficulty. The patient tolerated the procedure well. Findings: On digital rectal examination there was normal rectal tone. There were no external hemorrhoids. The colonoscope was introduced through the anal canal to the rectum and advanced to the ileocolonic anastomosis. The anastomosis was widely patent. The scope was advanced a short distance into the ileum which appeared grossly normal. The scope was then withdrawn into the colon. The remaining ascending, transverse, descending, sigmoid and rectum were grossly normal. There were no mucosal abnormalities identified. Upon retroflexion within the rectum there were grade 1-2 internal hemorrhoids. The preparation was excellent throughout with Philadelphia Preparation Score of 9. The cecal time was 10 minutes. Impression: 1. Prior ileocolonic resection with normal ileocolonic anastomosis otherwise normal colonoscopy with intubation of the terminal ileum Plan: I do not feel that the patient will require any further preventive/surveillance colonoscopy. I would encourage bulking fiber supplementation (FiberCon). We will discuss additional management of her dyspepsia and GERD.
[2024-08-31 11:16] VITALS: BP 89/53; PULSE 80; RESP 18; O2SAT 93
[2024-08-31 11:26] VITALS: BP 88/43; PULSE 77; RESP 18; O2SAT 99
[2024-08-31 11:33] VITALS: BP 91/73; PULSE 91; RESP 18; TEMP 36.1; O2SAT 93
[2024-08-31 11:45] VITALS: BP 108/76; PULSE 79; RESP 18; O2SAT 100
[2024-09-05 14:12] LABS: Interpretation Notes (.); Lactase 69.19 (>/= 14.0); Maltase 320.69 (>/= 110.0); Palatinase 28.31 (>/= 8.5); Reference Notes (.); Sucrase 125.96 (>/= 25.0)
== END 2024-08-31 11:45 | disposition home or self-care (01) ==
PROVIDERS: PCP Family Medicine; Visit Provider Internal Medicine Gastroenterology
PROC: 0DJ08ZZ Inspection of Upper Intestinal Tract, Via Natural or Artificial Opening Endoscopic (ICD-10-PCS; CPT 45378; principal; 2024-08-31 10:30)
DX: Z12.11 Encounter for screening for malignant neoplasm of colon (principal); K21.9 Gastro-esophageal reflux disease without esophagitis; Z80.0 Family history of malignant neoplasm of digestive organs; K22.4 Dyskinesia of esophagus; K44.9 Diaphragmatic hernia without obstruction or gangrene; K31.89 Other diseases of stomach and duodenum; K29.50 Unspecified chronic gastritis without bleeding; K30 Functional dyspepsia; K64.1 Second degree hemorrhoids; Z90.49 Acquired absence of other specified parts of digestive tract
CPT/HCPCS: 43239; G0121; 82657; 88305; J2003; J2704; J7120

== ENCOUNTER 2024-10-17 15:27 | Outpatient (CLI) | payer MEDICARE, SELFPAY ==
--- NOTE | 2024-10-17 15:31 | XR_ITS ---
FINAL REPORT CLINICAL HISTORY: ACUTE LEFT ANKLE PAIN PAIN IN LEFT HEEL FINDINGS: LEFT BUT Three views were obtained. There is no fracture or dislocation. The joint spaces appear normal. No soft tissue abnormality is identified. There is a moderate plantar spur. Small Lincoln deformity is identified. Note is made of an os peroneum. IMPRESSION: Moderate plantar spur. Reviewed, Interpreted and Dictated by Vasu Matamoros MD Transcribed by Harper Egan Authenticated and [facility]
--- OUTSIDE RECORDS SUMMARY | 2024-10-17 15:31 | XMS_ITS ---
Author Organization Unknown Problems Date Problem Result OnSetDate Icd10 SnomedCode Severity Cu stom 10/28/2023 00:00:00 Depression F32.9 08/10/2024 00:00:00 Neck pain M54.2 08/22/2024 00:00:00 Spinal stenosis in cervical region M48.02 08/22/2024 00:00:00 Spinal stenosis, unspecified spinal region M48.00 [id number] 08/22/2024 00:00:00 Arthritis M19.90 [id number]
--- OUTSIDE RECORDS SUMMARY | 2024-10-17 15:31 | XMS_ITS ---
Laboratory report Created on: September 07, 2024 BOBBY MIRJORIE : 1945 Sex: Female Author Organization Unknown PROBLEMS Problems List Code Description RESULTS Laboratory Orders Date Order Code Test 2024-08-31 [id number] DISACCHARIDASE D ETER. W/INTERP Laboratory Results Date LOINC Test Value Unit Reference Range Interpre tation 2024-08-31 1942-2 LACTASE 69.19 UMOL/MIN/G PROT >/= 14.0 2024-08-31 1815-0 MALTASE 320.69 UMOL/MIN/G PROT >/= 110.0 2024-08-31 13122-1 PALATINASE 28.31 UMOL/MIN/G PROT >/= 8.5 2024-08-31 90866-1 SUCRASE 125.96 UMOL/MIN/G PROT >/= 25.0 2024-08-31 41817-6 INTERPRETATION NOTES 2024-08-31 12480-5 DISCLAIMER NOTES 2024-08-31 34195-2 REFERENCE NOTES
--- OUTSIDE RECORDS SUMMARY | 2024-10-17 15:31 | XMS_ITS ---
Laboratory report Created on: September 02, 2024 RENZO MIR : 1945 Sex: Female Author Name EUGENIO REYES Organization Unknown PROBLEMS Problems List Code Description R10.9 K21.9 RESULTS Laboratory Orders Date Order Code Test 2023-02-24 [id number] H PYLORI BREATH TEST Laboratory Results Date LOINC Test Value Unit Reference Range Interpre tation 2023-02-24 28775-1 H PYLORI BREATH TEST N NEGATIVE
--- OUTSIDE RECORDS SUMMARY | 2024-10-17 15:31 | XMS_ITS | Clinical Summary ---
[facility] Address [address] [place] [address] Care Team Providers Care Casting Inspector Name Role Phone Provider, No Known Primary Care Provider Unavail able Medications Sod Picosulfate-Mag Ox-Cit Acd 10-3.5-12 MG-GM -GM/160ML solutionIndicat ions:Screening for colon cancer Take 160 mL by mouth Take As Directed for 2 doses. 320 mL 02/25/2021 Active Social History Tobacco Use Types Packs/Day Years Used Date Smoking Tobacco: Never Assessed Abuse Screen Answer Date Recorded Unsafe at Home or Work/School Not on file Feels Threatened by Someone? Not on file Does Anyone Keep You from Co ntacting Others or Doint Things Outside the Home? Not on file 11/27/2022 Physical Sign of Abuse Present Not on file 1 Housing Stability Answer Date Recorded Current Living Arrangements Not on file 11/15 Potentially Unsafe Housing Conditions Not on abhilash e 11/27/2022 Family and Community Support Answer Ag e Recorded Help with Day-to-Day Activities Not on file 11/27/2022 Lonely or Isolated Not on file 11/27/2022 Employment Answer Date Recorded Do you want help finding or keeping work or a winston b? Not on file 11/27/2022 Disabilities Answer Date Recorded Concentrating, Remembering, or Making Decisions Difficulty Not on file 11/27/2022 Doing Errands Independently Difficulty Not on fi le 11/27/2022 Education Answer Date Recorded Help with school or training? Not on file Preferred Language Not on file 11/27/2022 Comments Unknown Sex and Gender Information Value Date Recorded Sex Assigned at Not on file Legal Sex Female 3:58 PM EDT Gender Identity Not on file Sexual Orientation Not on file Plan of Treatment Health Maintenance Due Date Last Done Comments DXA SCAN 1945 TDAP/TD VACCINES (1 - Tdap) 02/13/1964 ZOSTER VACCINE (1 of 2) 1995 Pneumococcal Vaccine 50+ (2 of 2 - PCV) 01/28/2019 1 03/31/2017 RSV Vaccine - Adults (1 - 1-dose 75+ series) 0 ANNUAL PHYSICAL 10/25/2020 HEPATITIS C SCREENING 10/25/2020 COVID-19 Vaccine (1 - 2023- season) 2023 INFLUENZA VACCINE 11/15/2024 12/01/2019 COLONOSCOPY Discontinued 03/11/2021 COLORECTAL CANCER SCREENING Discontinued COLOGUARD Discontinued COLON CANCER SCREENING [address] COLONOGRAPHY Discontinued FECAL OCCULT BLOOD TEST Discontinued FIT Testing (1 year) Discontinued Procedures Procedure Name Priority Date/Time Associated Diagnosis Comments SCANNED - COLONOSCOPY 03/11/2021 from Last 3 Months or Most Recently Relevant to Health Maintenance Results * SCANNED - COLONOSCOPY (03/11/2021) Mio Stone MD CHART REVIEW TABS Final Res ult from Last 3 Months or Most Recently Relevant to Health Maintenance Insurance MEDICARE ADVANTAGE Care Teams Casting Inspector Relationship Specialty Start Date End Date Provider, No Known [facility] [place] [address] PCP - General 10/25/20
== END 2024-10-17 23:59 | disposition home or self-care (01) ==
LOC: RAD 15:29
PROVIDERS: PCP Family Medicine; Visit Provider Nurse Practitioner Family
DX: M77.32 Calcaneal spur, left foot (principal)
CPT/HCPCS: 73630

== ENCOUNTER 2025-01-18 11:35 | Outpatient (CLI) | payer MEDICARE, SELFPAY ==
--- NOTE | 2025-01-18 11:40 | XR_ITS ---
FINAL REPORT CLINICAL HISTORY: LUMBAR,THORACIC,AND CERVICAL SPINES, pain and spasms FINDINGS: AP, lateral and odontoid views of the cervical spine were obtained. There is no prior exam for comparison. There is no acute fracture or malalignment. There is a mild compression deformity of C5, likely chronic. Advanced multilevel degenerative disc disease is noted. The precervical soft tissues are normal. IMPRESSION: No acute osseous abnormality of the cervical spine. Chronic/degenerative changes as above. AP and lateral images of the thoracic spine were obtained. There is no prior exam for comparison. There is no acute fracture or acute malalignment. There is dextroscoliosis of the lower thoracic spine. Multilevel degenerative disc disease is noted. There is no acute paraspinal abnormality. IMPRESSION: No acute osseous abnormality of the thoracic spine. Chronic/degenerative changes. AP and lateral images of the lumbar spine were obtained. There is no prior exam for comparison. There is no acute fracture acute malalignment. Vertebral body heights are preserved. Advanced multilevel degenerative disc disease is noted. There is no acute paraspinal abnormality. IMPRESSION: No acute osseous abnormality of the lumbosacral spine. Advanced degenerative changes. Reviewed, Interpreted and Dictated by Kristin Taveras MD Transcribed by Tami Marley Authenticated and [facility]
--- OUTSIDE RECORDS SUMMARY | 2025-01-18 11:58 | XMS_ITS | Clinical Summary ---
[facility] Address [address] [place] [address] Care Team Providers Care Project Control Manager Name Role Phone Provider, No Known Primary [...] ANNUAL PHYSICAL 10/25/2020 HEPATITIS C SCREENING 10/25/2020 INFLUENZA VACCINE 09/15/2024 12/01/2019 COVID-19 Vaccine ( - season) 2024 COLONOSCOPY Discontinued 03/11/2021 COLORECTAL CANCER SCREENING Discontinued [...] Health Maintenance Insurance MEDICARE ADVANTAGE Care Teams Project Control Manager Relationship Specialty Start Date End Date Provider, No Known [facility] [place] [address] PCP - General 10/25/20
== END 2025-01-18 23:59 | disposition home or self-care (01) ==
LOC: RAD 11:37
PROVIDERS: PCP Family Medicine; Visit Provider Nurse Practitioner
DX: M47.812 Spondylosis without myelopathy or radiculopathy, cervical region (principal); M47.814 Spondylosis without myelopathy or radiculopathy, thoracic region; M47.816 Spondylosis without myelopathy or radiculopathy, lumbar region; M47.817 Spondylosis without myelopathy or radiculopathy, lumbosacral region; M41.84 Other forms of scoliosis, thoracic region
CPT/HCPCS: 72084

== ENCOUNTER 2025-02-14 10:34 | Outpatient (CLI) | payer MEDICARE, SELFPAY ==
--- OUTSIDE RECORDS SUMMARY | 2025-02-14 10:38 | XMS_ITS | Clinical Summary ---
[facility] [address] [place] [address] Care Team Providers Care Montessori Toddler Teacher Name Role Phone Provider, No Known Primary [...] Health Maintenance Insurance MEDICARE ADVANTAGE Care Teams Montessori Toddler Teacher Relationship Specialty Start Date End Date Provider, No Known [facility] [place] [address] PCP - General 10/25/20
[2025-02-14 10:45] VITALS: BP 115/65; PULSE 68; RESP 20; TEMP 37.2; O2SAT 94
[2025-02-14] MEDS: 0.9 % SODIUM CHLORIDE 1000ML 2,000 ML 999 ML IV (10:45)
[2025-02-14] MEDS: SODIUM CHLORIDE 0.9% 10ML FLUSH SYRINGE 10 ML IV (10:45)
[2025-02-14 11:55] VITALS: BP 156/84; PULSE 78
[2025-02-14 12:58] VITALS: BP 131/69; PULSE 74
== END 2025-02-14 23:59 | disposition home or self-care (01) ==
LOC: INF 10:35
PROVIDERS: PCP Family Medicine; Visit Provider Family Medicine
DX: E86.0 Dehydration (principal)
CPT/HCPCS: 96360; 96361; J7030